=== PATIENT | female | born 1935 | race Caucasian/White ===

== ENCOUNTER 2023-05-07 10:10 | Emergency (ER) | payer MEDICARE, OTHER, SELFPAY ==
[2023-05-07 10:18] VITALS: BP 183/78
[2023-05-07 11:12] VITALS: BP 177/69
[2023-05-07 11:23] VITALS: BMI 39.0
[2023-05-07 12:00] VITALS: BP 190/56
--- NOTE | 2023-05-07 12:02 | ED.GENMED ---
History of Present Illness
General
Chief Complaint: Abdominal Pain
Source: patient and family (son)
Exam Limitations: none
Time Seen by Provider: 05/07/23 11:22
Nursing documentation reviewed up to this point in time: agreed with
Travel History
Have you had any contact with someone who has COVID-19?: No
Do you have any symptoms of coronavirus? Fever > 100 degrees, chills, cough, shortness of breath, sore throat, loss of taste or smell, muscle aches, or headache?: No
History of Present Illness
History of Present Illness:
The patient is an 88-year-old female with a past medical history of CHF and diverticulitis, who comes in with complaints of 2 days of left upper abdominal pain. Patient reports that the pain started gradually and is now worse. Patient reports it
is also radiating under her left breast. However, she denies specific chest pain or shortness of breath. Patient reports he had a normal bowel movement yesterday. Earlier this morning she felt slightly nauseous. She denies fever. She denies
vomiting.
Past History
Past History
ED Past Medical History: HTN, Hypercholesterolemia, IDDM, Hypothyroidism, Other (Diverticulitis, back pain, chest pain, edema, diverticulosis, stress incontinence, arthritis, fractures, cataracts, impaired vision, anxiety, Sciatic pain, UTI, Ulcer
on the toe) and Other (achilles tendon rupture 2015)
ED Past Surgical History: Appendectomy, Cholecystectomy, Orthopedic (Knee arthroscopy), Tonsilectomy and Other (Cyst from breast removed, rectal surgery)
Social History
Tobacco: Non-smoker
Alcohol: None
Drug: None
Personal:
Living: with family (Son)
Employment: Retired
Family History
Family History: Other
Review of Systems
Review of Systems
Allergies reviewed?: Yes
Other source history: family
All Other Systems: ROS reviewed and negative except as documented in HPI and ROS
Constitutional: Reports no symptoms
EENT: Reports no symptoms
Respiratory: Reports no symptoms
Cardiac: Reports no symptoms
ABD/GI: Reports abdominal pain and nausea
: Reports no symptoms
Musculoskeletal: Reports no symptoms
Skin: Reports no symptoms
Neurological: Reports no symptoms
Endocrine: Reports no symptoms
Hematologic/Lymphatic: Reports no symptoms
Psychiatric: Reports no symptoms
Phy Exam
Physical Exam
Physical Exam:
Physical Exam
General: no apparent distress, not acutely ill
Neck: supple. no meningeal signs. normal psoterior pharynx
Heart: s1/s2 regular rate and rhythm, no murmur. equal radial pulses.
Lungs: no acute respiratory distress. clear bilaterally
Abdomen: Normal bowel sounds. Soft. Mildly distended. Left upper quadrant tenderness. No rebound or guarding. No pulsatile mass.
Neuro: alert and oriented. no focal neurological deficits
Skin: no rash
Psychiatric: well kept. interactive and cooperative
Extremities: no edema. no calf tenderness. negative homans. good distal pulses
Course
Orders/Labs/Results
Orders:
Orders
05/07/23 11:52
Basic Metabolic Panel Urgent
Complete Blood Count/With Diff Urgent
Lactic Acid Urgent
Lipase Urgent
Urinalysis Reflex To Culture Urgent
Date Specimen was Collected: 05/07/23
Time Specimen was Collected: 11:50
Urine Microscopic Reflex Cult Urgent
Urine Culture Urgent
KIMBERLY Source: U
Specimen Description:
Date Specimen was Collected: 05/07/23
Time Specimen was Collected: 11:50
05/07/23 12:01
Electrocardiogram (*1) Urgent
Reason for Study: Chest Pain
EKG- Treatment ONCE
05/07/23 12:09
Troponin I Urgent
05/07/23 12:26
0.9% Sodium Chloride 500 ml [Nss] 500 ml IV BOLUS
05/07/23 12:27
CT Abd/pelvis W Iv Cont Urgent
Comment:
Reason For Exam: LUQ pain
05/07/23 14:07
Comprehensive Metabolic Panel Urgent
05/07/23 14:10
Metoprolol Xl [Toprol Xl] 25 mg PO NOW STA
05/07/23 14:22
Cephalexin Monohydrate [Keflex] 500 mg PO NOW STA
Furosemide [Lasix] 20 mg PO NOW STA
Abnormal Lab Results
05/07/23 05/07/23
11:52 14:07
MCH 31.7 H pg
(27.0-31.0)
Potassium 5.2 H mmol/L
(3.5-5.1)
Chloride 110 H mmol/L 111 H mmol/L
(98-107) (98-107)
Carbon Dioxide 21 L mmol/L
(22-30)
BUN 29 H mg/dl 26 H mg/dl
(7-17) (7-17)
Glucose 177 H mg/dl 162 H mg/dl
(70-99) (70-99)
Total Protein 5.9 L g/dl
(6.3-8.2)
Albumin 3.4 L g/dl
(3.5-5.0)
Urine Ketones Trace A
(Negative)
Urine Nitrite (Reflex) Positive A
(Negative)
Leukocyte Esterase Rfl Trace A
(Negative)
Urine RBC 3-6 A /HPF
(0-2)
Urine WBC (Reflex) 11-15 A /HPF
(0-5)
Urine Bacteria (Reflex) Many A
(Negative)
05/07/23 11:52
05/07/23 14:07
Vital Signs
Initial and Last Documented VS:
Initial Vital Signs
Temp Pulse Resp BP Pulse Ox
98.3 F 78 77 183/78 96
05/07/23 10:18 05/07/23 10:18 05/07/23 10:18 05/07/23 10:18 05/07/23 10:18
Last Documented Vital Signs
Temp Pulse Resp BP Pulse Ox
98.2 F 65 18 187/60 94
05/07/23 15:31 05/07/23 14:00 05/07/23 14:00 05/07/23 13:46 05/07/23 14:00
MDM/Problems Addressed
Differential Diagnosis Includes:
Bowel obstruction, acute diverticulitis, gastritis, acute coronary syndrome
MDM/Problems Addressed:
Patient presents with acute left upper abdominal pain rating into her chest
Chronic conditions affecting care: HTN and Previous abdomnial surgery
Acute Exacerbation and/or Progression of Chronic Illness:
Patient would likely be acutely hyperglycemic and hypertensive because she did not take any of her medication today
Acute Exacerbation and/or Progression of Chronic Illness: DM and HTN
*Radiology
Radiology exam reviewed: radiology read reviewed
*Pulse Oximetry
Patient hypoxic: no
*EKG
Interpreted by ED Provider?: Yes
Interpretation: abnormal
Comparison EKG: no changes
Rate: normal
Rhythm: sinus
[place]: left axis deviation
Interval: normal interval
QRS Pattern: normal QRS
Ischemia: non-specific ST changes
*Vendor Management Consultant Interpretation
Rate: normal
Interpretation: normal
Rhythm: sinus
*Critical Care Note
Total Time (30-74mins, 75-104mins- exclusive of procedures): Not Applicable
Data Reviewed
Source: patient and family
Prescriptions/Medications Considered But Not Given:
Patient offered Tylenol for pain but states the pain is not that bad
She reports that if she wants Tylenol she states she will take it at home
Patient Management
Social determinants of health affecting care: Living situation (lives with son) and Strong social support
Escalation/DeEscalation of care consider admission/obs:
The patient remains well and comfortable appearing. She has no fever. Her CAT scan shows no sign of acute diverticulitis or bowel obstruction. There is no sign sign of hydronephrosis.
I am not sure patient's left upper abdominal pain is due to referred pain from her T12 compression fracture or just musculoskeletal in etiology. Patient also may have GERD or gastritis. Patient's urine looks suspicious for UTI, however she looks
extremely well, nontoxic, and lives with her son so has good support.
Her son is requesting prescriptions for her metoprolol and furosemide because he reports they are supposed to have arrived by mail and have not yet come.
ED Attending Note
-
Portions of this chart may have been created with voice recognition software.� Occasional wrong word or��sound alike� substitutions may have occurred due to the inherent limitations of voice recognition software.
Discharge Plan
Departure
Patient Disposition: Home (Routine Discharge)
Date of Disposition: 05/07/23
Time of Disposition: 14:28
Patient with high blood pressure during this ER visit?: Yes
Condition: Good
Covid-19: Not Applicable
Discharge Problem:
Compression fracture of T12 vertebra, Abdominal pain, Acute UTI
Instructions: Vertebral compression fracture, Urinary Tract Infection, Adult ED, Abdominal Pain
Prescriptions:
New
metoprolol succinate 25 mg tablet extended release 24 hr
25 mg PO DAILY 14 Days Qty: 14 0RF
furosemide 20 mg tablet
20 mg PO DAILY 14 Days Qty: 14 0RF
cephalexin 500 mg capsule
500 mg PO BID 7 Days Qty: 14 0RF
No Action
levothyroxine 50 MCG tablet
50 mcg PO DAILY
telmisartan 40 MG tablet
40 mg PO DAILY
cholecalciferol (vitamin D3) [Vitamin D3] 1,000 UNIT capsule
1,000 unit PO DAILY
Novolin 70/30 U-100 Insulin 100 unit/mL (70-30) suspension
0 sliding scale dose SC BID@0800,1700
aspirin 81 mg Tablet,Delayed Release (Dr/Ec)
81 mg PO DAILY Qty: 20 0RF
atorvastatin 40 mg Tablet
40 mg PO QPM Qty: 30 11RF
Brilinta 90 mg Tablet
90 mg PO BID Qty: 60 11RF
simethicone [Gas Relief (simethicone)] 180 mg capsule
180 mg PO BID PRN (Reason: abdominal distention) Qty: 60 0RF
metoprolol succinate 25 mg Tablet Extended Release 24 Hr
25 mg PO DAILY Qty: 30 11RF
furosemide [Lasix] 20 mg tablet
20 mg PO DAILY Qty: 30 11RF
Referrals:
Mayur Vo MD [Family Provider] -
Arthur Knowles MD [Active] - (Call to make an appointment to discuss your spine)
Activity Restrictions/Additional Instructions:
Take 1000 mg of Tylenol every 6 hours for pain. Return with any fever or vomiting.
Interventions
Interventions:
*Risk Screen - Suicide Last Done: 05/07/23 11:25
*General Assessment Last Done: 05/07/23 11:25
*Neglect/Abuse Screening Last Done: 05/07/23 11:25
ED- Fall Risk Assessment Last Done: 05/07/23 12:24
*ED COVID-19 Vaccine History Last Done: 05/07/23 11:25
*Nursing Disposition Last Done: 05/07/23 15:31
JI-Uapfbm-Ftqhsdccek Assessment Last Done: 05/07/23 11:24
Discharge Date and Time
Discharge Date/Time: 05/07/23 15:39
[2023-05-07 12:05] LABS: % Basophils 0.6 % (0-2); % Eosinophils 0.6 % (0-6); % Immature Granulocytes 0.2 % (0-0.5); % Lymphocytes 21.5 % (20.5-51.1); % Monocytes 9.2 % (1.7-9.3); % Neutrophils 67.9 % (42.2-75.2); Absolute Lymphocytes 1.4 10^3/uL (1.2-3.4); Absolute Monocytes 0.6 10^3/uL (0.1-0.6); Absolute Neutrophils 4.3 10^3/uL (1.4-6.5); Hematocrit 42.1 % (37.0-47.0); Hemoglobin 14.5 g/dL (12.0-16.0); Mean Corp Hgb Conc. 34.4 g/dL (33.0-37.0); Mean Corpuscular Hgb 31.7 pg (27.0-31.0); Mean Corpuscular Volume 92.1 fL (81.0-99.0); Mean Platelet Volume 9.5 fL (7.4-10.4); Nucleated Red Blood Cells % 0 %; Platelet Count 249 10^3/uL (130-400); Red Blood Cell Count 4.57 10^6/uL (4.20-5.40); Red Cell Dist. Width 13.3 % (11.5-14.5); White Blood Cell Count 6.3 10^3/uL (4.8-10.8)
[2023-05-07 12:09] LABS: Urine Albumin Negative (Neg - Trace); Urine Bilirubin Negative (Negative); Urine Character Clear (Clear); Urine Color Yellow; Urine Glucose Negative (Negative); Urine Ketone Trace (Negative); Urine Leukocyte Trace (Negative); Urine Nitrite Positive (Negative); Urine Occult Blood Negative (Negative); Urine Specific Gravity 1.015 (<1.030); Urine Urobilinogen Negative (Neg - 1+)
[2023-05-07 12:21] LABS: Blood Urea Nitrogen 29 mg/dl (7-17); Calcium 9.1 mg/dl (8.4-10.2); Carbon Dioxide 23 mmol/L (22-30); Chloride 110 mmol/L (98-107); Estimated Creatinine Clearance 45 ml/min; Glucose 177 mg/dl (70-99); Lipase 118 U/L (23-300); Sodium 136 mmol/L (135-145); eGFR 54.53
[2023-05-07] MEDS: NSS 500 IV (12:37)
[2023-05-07 12:38] LABS: Lactic Acid 1.1 mmol/L (0.7-2.0)
[2023-05-07 12:47] LABS: Troponin I 0.013 ng/ml
[2023-05-07 13:00] VITALS: BP 197/56
[2023-05-07 13:22] LABS: Urine Bacteria Many (Negative)
[2023-05-07 13:46] VITALS: BP 187/60
[2023-05-07 14:39] LABS: ALT (SGPT) 16 U/L (0-35); AST (SGOT) 23 U/L (14-36); Albumin 3.4 g/dl (3.5-5.0); Alkaline Phosphatase 96 U/L (38-126); Blood Urea Nitrogen 26 mg/dl (7-17); Calcium 8.7 mg/dl (8.4-10.2); Carbon Dioxide 21 mmol/L (22-30); Chloride 111 mmol/L (98-107); Estimated Creatinine Clearance 45 ml/min; Glucose 162 mg/dl (70-99); Potassium 5.2 mmol/L (3.5-5.1); Sodium 135 mmol/L (135-145); Total Bilirubin 0.8 mg/dl (0.2-1.3); Total Protein 5.9 g/dl (6.3-8.2); eGFR 54.53
[2023-05-07] MEDS: LASIX 20 MG PO (14:41)
[2023-05-07] MEDS: TOPROL XL 25 MG PO (14:41)
[2023-05-07] MEDS: KEFLEX 500 MG PO (14:41)
== END 2023-05-07 15:39 | disposition home or self-care (01) ==
LOC: EMR 10:10
PROVIDERS: EMERGENCY PHYSICIAN Emergency Medicine; FAMILY PHYSICIAN Family Medicine
DX: M48.54XA Collapsed vertebra, not elsewhere classified, thoracic region, initial encounter for fracture (principal); R10.12 Left upper quadrant pain; R11.0 Nausea; N39.0 Urinary tract infection, site not specified; I11.0 Hypertensive heart disease with heart failure; I50.9 Heart failure, unspecified; K57.92 Diverticulitis of intestine, part unspecified, without perforation or abscess without bleeding; E78.00 Pure hypercholesterolemia, unspecified; E11.36 Type 2 diabetes mellitus with diabetic cataract; E03.9 Hypothyroidism, unspecified; F41.9 Anxiety disorder, unspecified; M19.90 Unspecified osteoarthritis, unspecified site; Z79.4 Long term (current) use of insulin; Z87.440 Personal history of urinary (tract) infections; Z90.49 Acquired absence of other specified parts of digestive tract; Z88.1 Allergy status to other antibiotic agents; Z88.0 Allergy status to penicillin; Z88.2 Allergy status to sulfonamides; Z88.8 Allergy status to other drugs, medicaments and biological substances; Z79.82 Long term (current) use of aspirin
CPT/HCPCS: 99285; 96360; 74177; 80048; 80053; 81003; 81015; 83605; 83690; 84484; 85025; 87077; 87086; 87186; 93005; Q9967

== ENCOUNTER 2023-08-12 16:51 | Inpatient (IN) | payer MEDICARE, OTHER, SELFPAY ==
[2023-08-12] VITALS (8 sets, daily range): BP systolic 101–172; BP diastolic 49–146; PULSE 68–81; BMI 38.6
[2023-08-12 13:43] LABS: % Basophils 0.3 % (0-2); % Eosinophils 0.3 % (0-6); % Immature Granulocytes 0.3 % (0-0.5); % Lymphocytes 23.3 % (20.5-51.1); % Monocytes 4.7 % (1.7-9.3); % Neutrophils 71.1 % (42.2-75.2); Absolute Lymphocytes 2.4 10^3/uL (1.2-3.4); Absolute Monocytes 0.5 10^3/uL (0.1-0.6); Absolute Neutrophils 7.3 10^3/uL (1.4-6.5); Hematocrit 33.8 % (37.0-47.0); Hemoglobin 11.3 g/dL (12.0-16.0); Mean Corp Hgb Conc. 33.4 g/dL (33.0-37.0); Mean Corpuscular Hgb 31.6 pg (27.0-31.0); Mean Corpuscular Volume 94.4 fL (81.0-99.0); Mean Platelet Volume 9.4 fL (7.4-10.4); Nucleated Red Blood Cells % 0 %; Platelet Count 278 10^3/uL (130-400); Red Blood Cell Count 3.58 10^6/uL (4.20-5.40); Red Cell Dist. Width 13.6 % (11.5-14.5); White Blood Cell Count 10.2 10^3/uL (4.8-10.8)
[2023-08-12 13:52] LABS: INR 1.11; PT 14.1 Sec (11.4-14.6)
[2023-08-12 13:53] LABS: APTT 31.2 Sec (23.4-35.0)
[2023-08-12 14:01] LABS: ALT (SGPT) 18 U/L (0-35); AST (SGOT) 27 U/L (14-36); Albumin 3.9 g/dl (3.5-5.0); Alkaline Phosphatase 93 U/L (38-126); Blood Urea Nitrogen 50 mg/dl (7-17); Calcium 9.3 mg/dl (8.4-10.2); Carbon Dioxide 23 mmol/L (22-30); Chloride 108 mmol/L (98-107); Glucose 134 mg/dl (70-99); Potassium 4.9 mmol/L (3.5-5.1); Sodium 135 mmol/L (135-145); Total Bilirubin 0.5 mg/dl (0.2-1.3); Total Protein 6.3 g/dl (6.3-8.2); eGFR 48.63
[2023-08-12] MEDS: ROXICODONE 2.5 MG PO (14:13)
[2023-08-12] MEDS: PROTONIX IV 80 MG IV (14:14)
--- NOTE | 2023-08-12 16:05 | ED.GENMED ---
History of Present Illness
General
Chief Complaint: Back Pain
Source: patient and family (Son)
Exam Limitations: none
Time Seen by Provider: 08/12/23 12:45
Nursing documentation reviewed up to this point in time: agreed with
Travel History
Have you had any contact with someone who has COVID-19?: No
Do you have any symptoms of coronavirus? Fever > 100 degrees, chills, cough, shortness of breath, sore throat, loss of taste or smell, muscle aches, or headache?: No
History of Present Illness
History of Present Illness:
88-year-old female with a past medical history of hypertension, diabetes, CAD status post stent, chronic thoracic compression fracture who presents to the emergency department for evaluation of black stools as well as left flank/low back pain.
Patient reports that she has been dealing with constipation recently. She says she took a stool softener yesterday. Last night she says she had a large volume solid bowel movement that was black. Overnight she says she had 3-4 additional episodes
this time of liquid black stool. She says that while she was straining on the toilet she noted that she was having some pain in the left flank rating into the left buttock as well. With continued pain and multiple black stools decided to come for
evaluation in the emergency room today. She does feel fatigued and somewhat weak. Denies any shortness of breath or dizziness. She denies any abdominal pain. She denies any nausea or vomiting. She does take aspirin and Plavix for history of CAD.
Past History
Past History
ED Past Medical History: HTN, Hypercholesterolemia, IDDM, Hypothyroidism, Other (Diverticulitis, back pain, chest pain, edema, diverticulosis, stress incontinence, arthritis, fractures, cataracts, impaired vision, anxiety, Sciatic pain, UTI, Ulcer
on the toe) and Other (achilles tendon rupture 2015)
ED Past Surgical History: Appendectomy, Cholecystectomy, Orthopedic (Knee arthroscopy), Tonsilectomy and Other (Cyst from breast removed, rectal surgery)
Social History
Tobacco: Non-smoker
Alcohol: None
Drug: None
Personal:
Living: with family (Son)
Employment: Retired
Family History
Family History: Other
Review of Systems
Review of Systems
All Other Systems: ROS reviewed and negative except as documented in HPI and ROS
Constitutional: Reports fatigue; Denies fever or chills
EENT: Denies sore throat or runny nose
Respiratory: Denies cough or trouble breathing
Cardiac: Denies chest pain or palpitations
ABD/GI: Reports diarrhea and black stools; Denies abdominal pain, nausea or vomiting
: Reports flank pain; Denies dysuria or frequency
Musculoskeletal: Reports back pain; Denies neck pain
Neurological: Denies headache, weakness or numbness
Phy Exam
Physical Exam
Physical Exam:
General: Awake, alert, oriented x3; no acute distress
Head: Normocephalic, atraumatic
Eyes: Conjunctiva normal, sclera anicteric
Throat: Airway intact, handling secretions
Neck: Trachea midline, supple without meningismus
Lungs: Clear to auscultation bilaterally, no wheezing, rales, rhonchi
Heart: Regular rate and rhythm, no murmurs, gallops, or rubs
Abd: Soft, non distended, nontender
Rectal: Good rectal tone, black stool heme positive
Back: No tenderness in the thoracic or lumbar spine; she does have point tenderness paraspinal region at the level of L3 on the left side
Neuro: Cranial nerves grossly intact, speech fluid
Skin: Slightly pale, no rash
Extremities: Warm and well-perfused
Scores
Heart Failure Risk
Heart Failure Risk Score: Not Applicable
Heart Score for Chest Pain Patients
STEMI patient?: Not applicable
Withdrawal Assessment of Alcohol
Withdrawal Assessment Completed?: Not applicable
Course
Orders/Labs/Results
Orders:
Orders
08/12/23 12:51
CT Abd/pelvis W Iv Cont Urgent
Comment:
Reason For Exam: rectal pain
08/12/23 13:14
Oxycodone [Roxicodone] 2.5 mg PO NOW STA
Pantoprazole [Protonix IV] 80 mg IV NOW STA
08/12/23 13:32
Type+Screen Urgent
Complete Blood Count/With Diff Urgent
Comprehensive Metabolic Panel Urgent
PTT Urgent
Prothrombin Time Urgent
Abnormal Lab Results
08/12/23
13:32
RBC 3.58 L 10^6/uL
(4.20-5.40)
Hgb 11.3 L g/dL
(12.0-16.0)
Hct 33.8 L %
(37.0-47.0)
MCH 31.6 H pg
(27.0-31.0)
Absolute Neuts (auto) 7.3 H 10^3/uL
(1.4-6.5)
Chloride 108 H mmol/L
(98-107)
BUN 50 H mg/dl
(7-17)
Creatinine 1.1 H mg/dL
(0.6-1.0)
Glucose 134 H mg/dl
(70-99)
08/12/23 13:32
08/12/23 13:32
Vital Signs
Initial and Last Documented VS:
Initial Vital Signs
Temp Pulse Resp BP Pulse Ox
36.6 C 73 16 134/71 93
08/12/23 12:09 08/12/23 12:09 08/12/23 12:08/12/23 12:08/12/23 12:09
Last Documented Vital Signs
Temp Pulse Resp BP Pulse Ox
36.6 C 73 16 134/71 93
08/12/23 12:09 08/12/23 12:09 08/12/23 12:09 08/12/23 12:09 08/12/23 12:09
MDM/Problems Addressed
Differential Diagnosis Includes:
Black stools: Upper GI bleeding from ulcer, gastritis, AVM, etc
Back/flank pain: Muscular strain, disc herniation, compression fracture, retroperitoneal bleed, intra-abdominal infection less likely with no abdominal pain or tenderness
MDM/Problems Addressed:
88-year-old female with history as above notable for CAD on aspirin and Plavix presents with black stools times multiple episodes over the past 24 hours. Also having some acute on chronic pain in the left low back radiating to the buttock. Vital
signs are normal here. Exam as above. She is heme positive with black stool on rectal exam today. Plan to place a large bore IV send labs including a CBC and a CMP, coags, type and screen. Will send for a CT of the abdomen pelvis to better
evaluate left flank/back pain. Will treat with IV Protonix. Monitor closely reassess after the above�anticipate admission.
Labs reviewed: CBC shows hemoglobin of 11.3 down from 14 at baseline. CMP shows creatinine of 1.1 with elevated BUN in keeping with upper GI bleed. Patient is above transfusion threshold but given multiple episodes and to antiplatelet therapy will
need close monitoring for bleeding and serial hemoglobins. CT of the abdomen pelvis shows questionable proctitis but no other acute abnormalities. Will plan for admission for continued management�Case discussed with hospitalist for admission.
Chronic conditions affecting care:
CAD on dual antiplatelet therapy which complicates her GI bleeding
*Radiology
Radiology exam reviewed: radiology read reviewed
*Pulse Oximetry
Patient hypoxic: no
*Critical Care Note
Total Time (30-74mins, 75-104mins- exclusive of procedures): Not Applicable
Data Reviewed
Review of Other/Old Records Reveals: Labs and Records
Source: patient and family
Patient Management
Discussion with other providers: Hospitalist (Discussed with hospitalist)
Escalation/DeEscalation of care consider admission/obs:
Admission indicated
ED Attending Note
-
Portions of this chart may have been created with voice recognition software.� Occasional wrong word or��sound alike� substitutions may have occurred due to the inherent limitations of voice recognition software.
Discharge Plan
Departure
Patient Disposition: Admit
Date of Disposition: 08/12/23
Time of Disposition: 16:11
Admit to doctor: Faustino
Presentation/result/management discussed w/ accepting MD/DO: Hospitalist
Discharge Problem:
Acute upper GI bleed, Left low back pain, Acute blood loss anemia
Prescriptions:
No Action
levothyroxine 50 MCG tablet
50 mcg PO DAILY
telmisartan 40 MG tablet
40 mg PO DAILY
cholecalciferol (vitamin D3) [Vitamin D3] 1,000 UNIT capsule
1,000 unit PO DAILY
Novolin 70/30 U-100 Insulin 100 unit/mL (70-30) suspension
0 sliding scale dose SC BID@0800,1700
aspirin 81 mg Tablet,Delayed Release (Dr/Ec)
81 mg PO DAILY Qty: 20 0RF
atorvastatin 40 mg Tablet
40 mg PO QPM Qty: 30 11RF
Brilinta 90 mg Tablet
90 mg PO BID Qty: 60 11RF
simethicone [Gas Relief (simethicone)] 180 mg capsule
180 mg PO BID PRN (Reason: abdominal distention) Qty: 60 0RF
metoprolol succinate 25 mg Tablet Extended Release 24 Hr
25 mg PO DAILY Qty: 30 11RF
furosemide [Lasix] 20 mg tablet
20 mg PO DAILY Qty: 30 11RF
metoprolol succinate 25 mg tablet extended release 24 hr
25 mg PO DAILY 14 Days Qty: 14 0RF
furosemide 20 mg tablet
20 mg PO DAILY 14 Days Qty: 14 0RF
cephalexin 500 mg capsule
500 mg PO BID 7 Days Qty: 14 0RF
Referrals:
Mayur Vo MD [Family Provider] -
Interventions
Interventions:
*Risk Screen - Suicide Last Done: 08/12/23 12:09
*General Assessment Last Done: 08/12/23 12:09
*Neglect/Abuse Screening Last Done: 08/12/23 12:09
ED- Fall Risk Assessment Last Done: 08/12/23 14:23
ED-Musculoskeletal Assessment Last Done: 08/12/23 14:23
Discharge Date and Time
Print Language: PUERTO RICAN
--- NOTE | 2023-08-12 16:12 | HPS.HSE ---
Family Physician
-
Family Physician: Mayur Vo
Chief Complaint
-
Black stools
History of Present Illness
88-year-old female with a past medical history of hypertension, diabetes, CAD status post stent, chronic thoracic compression fracture who presents to the emergency department for evaluation of black stools since yesterday. Patient also complaining
of low back pain. Patient reports that she has been dealing with constipation recently. She says she took a stool softener yesterday.she says she had a large volume solid bowel movement that was black. she had 3-4 additional episodes this time of
liquid black stool. Patient was straining and since then she has been noticing low mid back pain. with continued pain and multiple black stools decided to come for evaluation in the emergency room today. Patient denied any abdominal pain. Patient
denied nausea, vomiting. Patient denied any headache, dizziness, syncopal episode. Patient denied runny nose, congestion, cough patient denied chest pain or short of breath. Patient denied dysuria hematuria.
CT with proctitis. Hemoglobin at 11.1. Admitting for further management
Medical History
Past Medical History
Past Medical History: Reports Other
Additional Past Medical History:
Vitamin D deficiency
Hypothyroidism
Hyperlipidemia
[place]
Type 2 diabetes
Hypertension
Heart failure
Past Surgical History: Reports Other
Additional Past Surgical History:
Appendectomy
Cholecystectomy
Rectal cyst
Bilateral cataract surgery
Cardiac stents
Social History
Tobacco: Non-smoker
Alcohol: None
Drug: None
Family History
Family History: Not pertinent
Allergies / Home Medications
Allergies reflects when Allergies were last updated in [facility].
Home Medications with original date entered in [facility]
Allergy/Medication List:
Allergies
Allergy/AdvReac Type Severity Reaction Status Date / Time
amoxicillin Allergy upset Verified 08/12/23 12:09
stomach
ciprofloxacin HCl Allergy upset Verified 08/12/23 12:09
[From Cipro] stomach
levofloxacin [From Levaquin] Allergy ITCHINESS Verified 08/12/23 12:09
Penicillins Allergy upset Verified 08/12/23 12:09
stomach
Sulfa (Sulfonamide Allergy Unknown Verified 08/12/23 12:09
Antibiotics)
tegaserod hydrogen maleate Allergy DRUG OFF Verified 08/12/23 12:09
[From Zelnorm] [facility]
Home Medications
levothyroxine 50 mcg tablet 50 mcg PO DAILY Thyroid 11/26/14
telmisartan 40 mg tablet 40 mg PO DAILY Blood pressure 11/09/18
cholecalciferol (vitamin D3) 25 mcg (1,000 unit) capsule (Vitamin D3) 1,000 unit PO DAILY Supplement 11/11/18
insulin human U-100 NPH-regulr 70-30 mix 100 unit/mL subcutaneous susp (Novolin 70/30 U-100 Insulin) 0 sliding scale dose SC BID@0800,1700 Diabetes 08/19/22
aspirin 81 mg tablet,delayed release 81 mg PO DAILY heart disease/condition #20 tabs 08/23/22
atorvastatin 40 mg tablet 40 mg PO QPM High cholesterol #30 tabs 08/23/22
metoprolol succinate 25 mg tablet,extended release 24 hr 25 mg PO DAILY Heart disease/condition #30 tabs 08/23/22
furosemide 20 mg tablet 20 mg PO DAILY 14 days #14 tabs 05/07/23
Review of Systems
-
Constitutional: Reports No Symptoms
EENT: Reports No Symptoms
Respiratory: Reports No Symptoms
Cardiac: Reports No Symptoms
Abdomen/GI: Reports Bloody Stools
: Reports No Symptoms
Musculoskeletal: Reports No Symptoms and Other (back pain)
Skin: Reports No Symptoms
Neurological: Reports No Symptoms
Endocrine: Reports No Symptoms
Hematologic/Lymphatic: Reports No Symptoms
Psych: Reports No Symptoms
Physical Exam
Vital Signs
Vital Signs
Temp Pulse Resp BP Pulse Ox
98 F 73 16 134/71 93
08/12/23 12:09 08/12/23 12:09 08/12/23 12:09 08/12/23 12:09 08/12/23 12:09
Physical Exam
General: Well Developed, Well Nourished and No Apparent Distress
HEENT: NormoCephalic, Moist mucous membranes and Atraumatic
Respiratory: Clear
Cardiac: S1/S2 and Regular Rhythm; No Murmur or Rub
GI: Soft, Non Tender, Non Distended and Normal Bowel Sounds; No Organomegaly
Rectal: Deferred by Provider
Musculoskeletal: No Clubbing, No Cyanosis and No Edema
Skin: No Rash
Neuro: AO x 3 and Nonfocal/grossly intact
Laboratory Results
-
08/12/23 13:32
08/12/23 13:32
Laboratory Results
PT 14.1 Sec (11.4-14.6) 08/12/23 13:32
INR 1.11 08/12/23 13:32
APTT 31.2 Sec (23.4-35.0) 08/12/23 13:32
Total Bilirubin 0.5 mg/dl (0.2-1.3) 08/12/23 13:32
AST 27 U/L (14-36) 08/12/23 13:32
ALT 18 U/L (0-35) 08/12/23 13:32
Alkaline Phosphatase 93 U/L (38-126) 08/12/23 13:32
Data Reviewed
-
CT Scan: Report Reviewed by me
Lab Data: Labs Reviewed by me
Impression/Plan
-
# Acute blood loss anemia likely from upper GI bleed/left flank pain
-Hemoglobin 11
-IV PPI twice a day
-Clear liquid diet
-Trend hemoglobin
-Transfuse if hemoglobin less than 7
-GI consulted
CT abdomen pelvis with Mild to moderate rectal wall thickening suggesting some form of proctitis. No signs of abscess formation identified. No other signs of an acute intra-abdominal process.
2. Atrophic changes of the right kidney, probably related to arterial stenosis.
3. Severe aortic atherosclerotic changes with probable focal aortic narrowing as above.
4. Moderate fat-containing umbilical hernia.
5. Moderate compression deformity T12 vertebral body, chronic appearance.
#acute kidney injury likely from diuretic
-Creatinine 1.1
-ctm
-hold Lasix and ARB
#hx tof heart failure, combined type
-Echo 08/19 Ischemic cardiomyopathy with moderately reduced LV systolic function and mild�concentric left ventricular hypertrophy,�EF 35%, Stage III diastolic dysfunction with increased filling pressures
-not in acute exacerbation
-daily weight
-strict I&O
-ctm
-furosemide held due to SEBASTIEN
-metoprolol
# NSTEMI
Status post cardiac catheterization on 08/20 with stent to LAD
-continue with asa
-hold Plavix
#hld
-statin continued
# Essential Hypertension
-metoprolol continued
# Insulin Dependent Diabetes Mellitus
Monitor sugars and continue coverage insulin
-novolin 10units with meals
# Hypothyroidism
-Continue Levothyroxine
# Morbid Obesity due Excess Calories
Consult Dietary
Encourage weight loss
Affects all aspects of care
DVT prophylaxis�scd
DNR
--- NOTE | 2023-08-12 17:23 | W.PN.UPDATE ---
Update Note
Progress Note Update
HPI: 88-year-old female with past medical history of hypertension, diabetes, CAD status post stent, chronic thoracic compression fracture who presented with black stool for 1 day.
She also has chronic lower back pain ongoing for several months.
CT abdomen pelvis with Mild to moderate rectal wall thickening suggesting some form of proctitis. No signs of abscess formation identified. No other signs of an acute intra-abdominal process.
2. Atrophic changes of the right kidney, probably related to arterial stenosis.
3. Severe aortic atherosclerotic changes with probable focal aortic narrowing as above.
4. Moderate fat-containing umbilical hernia.
5. Moderate compression deformity T12 vertebral b
A/P:
# Acute blood loss anemia likely from upper GI bleed in setting of DAPT with ASA/Plavix
Hemoglobin 11 from baseline 14
Cont to trend Hgb
Start IV PPI twice a day
Clear liquid diet for now until further directed by GI
GI consult
# Chronic diastolic heart failure
EF from 11/2022 with EF 55%, Grade 1 diastolic dysfunction
OK to hold lasix for now
cont OIL PUMPER metoprolol with holding parameter
# h/o CAD s/p PCI LAD 08/31
continue with asa, hold plavix
# HLD
Cont statin
# Essential Hypertension
Cont metoprolol
# Insulin Dependent Diabetes Mellitus
Monitor sugars and continue coverage insulin
Cont decreased Insulin 70/30 at 10units BID
# Hypothyroidism
Continue Levothyroxine
# Morbid Obesity due Excess Calories
DVT prophylaxis�scd
DNR
[2023-08-12] MEDS: LIPITOR 10 MG PO (18:59)
[2023-08-12 19:06] LABS: Glucose - Point of Care 217 mg/dl (70-99)
--- NOTE | 2023-08-12 19:30 | PTCARENOTE ---
Pt. admitted from E.D., AAO x 3, vs stable, NSR, first degree HB, BBC noted on monitor, call avila within reach.
[2023-08-12] MEDS: PROTONIX IV 40 MG IV (21:21)
[2023-08-12] MEDS: FLUSH (NSS) 2 FLUSH IV (21:21)
[2023-08-12] MEDS: NSS (PRESERVATIVE FREE) 10 ML IV (21:21)
[2023-08-12 23:50] LABS: Glucose - Point of Care 155 mg/dl (70-99)
[2023-08-13] VITALS (7 sets, daily range): BP systolic 144–174; BP diastolic 42–78; PULSE 71–89; BMI 37.5
[2023-08-13] MEDS: SYNTHROID 50 MCG PO (05:01)
[2023-08-13 07:05] LABS: Glucose - Point of Care 184 mg/dl (70-99)
[2023-08-13 07:40] LABS: Hematocrit 29.8 % (37.0-47.0); Hemoglobin 9.8 g/dL (12.0-16.0); Mean Corp Hgb Conc. 32.9 g/dL (33.0-37.0); Mean Corpuscular Hgb 31.7 pg (27.0-31.0); Mean Corpuscular Volume 96.4 fL (81.0-99.0); Mean Platelet Volume 9.4 fL (7.4-10.4); Platelet Count 239 10^3/uL (130-400); Red Blood Cell Count 3.09 10^6/uL (4.20-5.40); Red Cell Dist. Width 13.4 % (11.5-14.5)
[2023-08-13 08:25] LABS: Blood Urea Nitrogen 35 mg/dl (7-17); Calcium 8.9 mg/dl (8.4-10.2); Carbon Dioxide 24 mmol/L (22-30); Chloride 109 mmol/L (98-107); Estimated Creatinine Clearance 40 ml/min; Glucose 158 mg/dl (70-99); Potassium 4.9 mmol/L (3.5-5.1); Sodium 134 mmol/L (135-145); eGFR 48.63
[2023-08-13] MEDS: NSS (PRESERVATIVE FREE) 10 ML IV ×2 (08:27→20:37)
[2023-08-13] MEDS: PROTONIX IV 40 MG IV ×2 (08:27→20:36)
[2023-08-13] MEDS: TOPROL XL 25 MG PO (08:27)
[2023-08-13] MEDS: ASPIR LOW (ENTERIC COATED) 81 MG PO (08:27)
[2023-08-13 09:09] LABS: Glycohemoglobin (HgbA1c) 7.1 % (4.0-5.6)
[2023-08-13] MEDS: NOVOLOG MIX 70/30 FLEXPEN 10 UNITS SC ×2 (09:47→17:24)
[2023-08-13] MEDS: NOVOLOG FLEXPEN-LOW RESISTANCE 1 UNITS SC (09:48)
--- NOTE | 2023-08-13 10:04 | CON.GI ---
Addendum entered and electronically signed by Ayse Barrientos MD 08/13/23 14:48:
I saw and examined the patient.
The JOB SETTER or PA's note was reviewed and I agree with the note.
Comment: 88-year-old female past medical history of diabetes, CAD status post stent August 2022 presenting with melena. Initially was constipated and had multiple black bowel movements. Last bowel movement was yesterday. Denies NSAID use. She is on
aspirin and Plavix. She has some chronic nausea that she attributes to the Plavix. She has no abdominal pain but has some back pain. She is found to have proctitis on CAT scan in the emergency room. Her hemoglobin was initially 11.3 which
dropped to 9.8. BUN on admission was 50 which dropped to 35. She had an upper endoscopy many years ago I do not see anything in the [facility] system.
In regards to her Plavix, her last dose was Tuesday. Reviewing her cardiology note from June 2023, they recommended uninterrupted dual antiplatelet therapy for at least 1 year with plans to discuss discontinuation of Plavix in September (appt 09/[address] at
[address] Akhtar). Patient feels strongly she should stop the Plavix. I explained to her I would not recommend stopping Plavix until she addresses this with her dining manager. However, we will temporarily hold her Plavix in the acute setting
with the bleeding. We can and should continue her baby aspirin.
Given the melena, elevated BUN I suspect this is an upper GI source. Differential diagnosis includes but not limited to peptic ulcer disease, AVM, less likely malignancy. This was reviewed with the patient. Discussed upper endoscopy. Risk,
alternatives, benefits including but not limited to bleeding, infection, perforation, increased risk given her age and comorbidities were discussed. Discussed the benefit of finding etiology of the bleeding and potentially stopping it. Although
she took her last dose of Plavix on Tuesday, we could do the procedure on Tuesday although our interventions may be somewhat limited. Otherwise, procedure would be on hold until Tuesday. Patient feels a little overwhelmed discussing endoscopy so
we will readdress with her again tomorrow. At this time, there is no emergent need to do it over the weekend. For now, continue clear liquid diet, trend hemoglobin, monitor bowel movements, continue IV PPI twice daily.
Original Note:
Consultation
-
Date/Time Consultation Requested: 08/12/23 1937
Date/Time Consultation Performed: 08/13/23 1669
Requesting Provider: SARA Nathan
Performing Provider: Dr. Barrientos/SARA Conner
Reason for Consultation: GI bleed, melena
Medical History
Chief Complaint / HPI
Chief Complaint: melena
History of Present Illness:
88-year-old female with past medical history hypertension, diabetes, CAD status postcardiac stent, gastroesophageal reflux, chronic thoracic compression fractures who presents to the emergency room with melena. The patient states that yesterday she
was having a bowel movement. She states that she is usually constipated and uses a stool softener to have a bowel movement. She usually has soft pebble-like stools every couple days. She took more stool softeners. She states that she then started
having black bowel movements. This brought her to the emergency room for further evaluation. There she was found to have hemoglobin of 11.3 with OB positive stool. CT showing proctitis. We are asked to evaluate for the same. The patient does
also endorse low back pain with radiation down into the legs. She has had some mild nausea recently. In the past she has been on a PPI for gastroesophageal reflux disease however she states she has not taken this in some time. She is on aspirin
and Plavix. She does not take any other NSAIDs. She denies any fevers, chills, vomiting, hematochezia, dysphagia or dyne aphasia. She denies any early satiety or unintentional weight loss. Her hemoglobin did decrease from 11.3 down to 9.8 this
morning. She also did present with a BUN of 50 with creatinine 1.1 and is now down to 35 with creatinine 1.1. Rectal exam performed by myself was soft melena foul-smelling briskly heme positive. From 11.3 patient has had no bowel movements since
arrival.
Past Medical History
Past Medical History: CAD (cardiac stents), CHF, HTN, IDDM and Other (chronic thoracic compression fractures, constipation, GERD)
Past Surgical History: Cholecystectomy, Tonsilectomy and Other (b/l cataracts, right brast cyst removal, right knee arthroscopy)
Social History
Tobacco: Non-Smoker
Alcohol: None
Living: With Family
Family History
Family History: Other (No fam hx of GI malignancy or IBD )
Allergies / Home Medications
Allergy/AdvReac Type Severity Reaction Status Date / Time
amoxicillin Allergy upset Verified 08/12/23 12:09
stomach
ciprofloxacin HCl Allergy upset Verified 08/12/23 12:09
[From Cipro] stomach
levofloxacin [From Levaquin] Allergy ITCHINESS Verified 08/12/23 12:09
Penicillins Allergy upset Verified 08/12/23 12:09
stomach
Sulfa (Sulfonamide Allergy Unknown Verified 08/12/23 12:09
Antibiotics)
tegaserod hydrogen maleate Allergy DRUG OFF Verified 08/12/23 12:09
[From Zelnorm] [facility]
�Medication �Instructions �Recorded
levothyroxine 50 mcg tablet 50 mcg PO DAILY Thyroid 11/26/14
telmisartan 40 mg tablet 40 mg PO DAILY Blood pressure 11/09/18
cholecalciferol (vitamin D3) 25 1,000 unit PO DAILY Supplement 11/11/18
mcg (1,000 unit) capsule (Vitamin
D3)
insulin human U-100 NPH-regulr 35 unit SC BID@0800,1700 Diabetes 08/19/22
70-30 mix 100 unit/mL subcutaneous
susp (Novolin 70/30 U-100 Insulin)
aspirin 81 mg tablet,delayed 81 mg PO DAILY heart 08/23/22
release disease/condition #20 tabs
metoprolol succinate 25 mg 25 mg PO DAILY Heart 08/23/22
tablet,extended release 24 hr disease/condition #30 tabs
atorvastatin 10 mg tablet (Lipitor) 10 mg PO Q48H@1700 08/12/23
clopidogrel 75 mg tablet (Plavix) 75 mg PO DAILY 08/12/23
furosemide 20 mg tablet 20 mg PO Q48H 08/12/23
Review of Systems
-
All other systems: A 12 pt ROS was Negative except as stated above in HPI
Vital Signs
Temp Pulse Resp BP Pulse Ox
97.8 F 68 16 146/57 96
08/13/23 07:00 08/13/23 07:00 08/13/23 07:00 08/13/23 07:00 08/13/23 07:00
Physical Exam
Exam
General: No Apparent Distress
HEENT: Anicteric
Respiratory: Clear
Cardiac: Regular Rhythm
GI: Soft, Non Tender, Non Distended and Normal Bowel Sounds
Rectal: Black and Hem Positive
Skin: Warm and Dry
Neuro: AO x 3
Psych: Calm
Results
WBC 7.0 10^3/uL (4.8-10.8) 08/13/23 07:21
Hgb 9.8 g/dL (12.0-16.0) L 08/13/23 07:21
Hct 29.8 % (37.0-47.0) L 08/13/23 07:21
MCV 96.4 fL (81.0-99.0) 08/13/23 07:21
Plt Count 239 10^3/uL (130-400) 08/13/23 07:21
Absolute Neuts (auto) 7.3 10^3/uL (1.4-6.5) H 08/12/23 13:32
PT 14.1 Sec (11.4-14.6) 08/12/23 13:32
INR 1.11 08/12/23 13:32
APTT 31.2 Sec (23.4-35.0) 08/12/23 13:32
Sodium 134 mmol/L (135-145) L 08/13/23 07:21
Potassium 4.9 mmol/L (3.5-5.1) 08/13/23 07:21
Chloride 109 mmol/L (98-107) H 08/13/23 07:21
Carbon Dioxide 24 mmol/L (22-30) 08/13/23 07:21
BUN 35 mg/dl (7-17) H 08/13/23 07:21
Creatinine 1.1 mg/dL (0.6-1.0) H 08/13/23 07:21
Calcium 8.9 mg/dl (8.4-10.2) 08/13/23 07:21
Total Bilirubin 0.5 mg/dl (0.2-1.3) 08/12/23 13:32
AST 27 U/L (14-36) 08/12/23 13:32
ALT 18 U/L (0-35) 08/12/23 13:32
Alkaline Phosphatase 93 U/L (38-126) 08/12/23 13:32
Diagnostic Image Results:
CT Abd/Pelvis with IV contrast:
IMPRESSION:
1. Mild to moderate rectal wall thickening suggesting some form of proctitis. No signs of abscess formation identified. No other signs of an acute intra-abdominal process.
2. Atrophic changes of the right kidney, probably related to arterial stenosis.
3. Severe aortic atherosclerotic changes with probable focal aortic narrowing as above.
4. Moderate fat-containing umbilical hernia.
5. Moderate compression deformity T12 vertebral body, chronic appearance.
Electronically signed by Hammad Nunez DO 08/12/2023 3:43 PM
Prior GI Procedures:
EGD: 'years ago' does not recall who or dx
Colonoscopy: 'year ago' 'okay'
Assessment / Plan
-
88-year-old female with past medical history hypertension, diabetes, CAD status postcardiac stent, gastroesophageal reflux, chronic thoracic compression fractures who presents to the emergency room with melena. The patient states that yesterday she
was having a bowel movement. She states that she is usually constipated and uses a stool softener to have a bowel movement. She usually has soft pebble-like stools every couple days. She took more stool softeners. She states that she then started
having black bowel movements. This brought her to the emergency room for further evaluation. There she was found to have hemoglobin of 11.3 with OB positive stool. CT showing proctitis. Patient with melena on rectal performed by myself with drop
in Hgb down to 9.8 and BUN of 50 on arrival. No further BMs since here. On PPI now. Was not at home. Plavix being held.
Impression:
GI bleed (melena)
Acute blood loss anemia
-Patient currently stable without any further episodes of bleeding, VSS, Plavix on hold, BUN trending down.
Chronic constipation
Plan:
-Continue on Pantoprazole 40 mg IV BID
-Clear liquid diet, no red
-Trend labs
-Allow for plavix washout, last dose on .
-Plan on EGD-timing to be discussed.
-Stool seen on CT imaging suggesting proctitis, soft stool on rectal exam (patient took more colace) Not uncomfortable now, no impaction.
-
-
Thank you for consultation and allowing me to participate in the patient's care. Please call the integration software developer GI physician during the after hours with any questions or concerns.
--- NOTE | 2023-08-13 10:57 | W.PN.HOSP.TC ---
Today's Communication/Plan
-
see A/P
Assessment / Plan
Assessment / Plan
HPI: 88-year-old female with past medical history of hypertension, diabetes, CAD status post stent, chronic thoracic compression fracture who presented with black stool for 1 day.
She also has chronic lower back pain ongoing for several months.
CT abdomen pelvis with Mild to moderate rectal wall thickening suggesting some form of proctitis. No signs of abscess formation identified. No other signs of an acute intra-abdominal process.
2. Atrophic changes of the right kidney, probably related to arterial stenosis.
3. Severe aortic atherosclerotic changes with probable focal aortic narrowing as above.
4. Moderate fat-containing umbilical hernia.
5. Moderate compression deformity T12 vertebral b
A/P:
# Acute blood loss anemia likely from upper GI bleed in setting of DAPT use with ASA/Plavix
Hemoglobin 9.8 today from baseline 14.5
Cont to trend Hgb
Cont IV PPI twice a day
Clear liquid diet for now until further directed by GI
GI consulted
# Chronic diastolic heart failure
EF from 11/2022 with EF 55%, Grade 1 diastolic dysfunction
OK to hold lasix for now with likely acute GIB
cont HANDKERCHIEF FOLDER metoprolol with holding parameter
# h/o CAD s/p PCI LAD August 31
continue with asa
hold plavix (pt is planning to have Plavix stopped in September 2023 anyway)
# HLD
Cont statin
# Essential Hypertension
Cont metoprolol with holding parameter
# Insulin Dependent Diabetes Mellitus
Monitor sugars and continue coverage insulin
Cont decreased Insulin 70/30 at 10units BID with current clear liquid diet
# Hypothyroidism
Continue Levothyroxine
# Morbid Obesity due Excess Calories
DVT prophylaxis�scd
DNR
DW RN
Anticipated Discharge: > 48 hours
Subjective/Interval History
-
Date of Service: August 13, 2023
Objective Data
-
Labs:
Laboratory Results
08/13/23
07:21
WBC 7.0
Hgb 9.8 L
Hct 29.8 L
Plt Count 239
Sodium 134 L
Potassium 4.9
Chloride 109 H
Carbon Dioxide 24
BUN 35 H
Creatinine 1.1 H
Glucose 158 H
Calcium 8.9
Vital Signs:
Vital Signs
Temp Pulse Resp BP Pulse Ox
36.6 C 68 16 146/57 96
08/13/23 07:00 08/13/23 07:00 08/13/23 07:00 08/13/23 07:00 08/13/23 08:00
I&O
08/12/23 08/13/23 08/14/23
06:59 06:59 06:59
Intake Total 450 / 450
Balance 450 / 450
Review of Systems
-
All other systems: Reviewed and negative
Physical Exam
-
General: Well Developed, Well Nourished, No Apparent Distress, Comfortable, Conversant and Obese; Negative Respiratory Distress
HEENT: Normocephalic, Atraumatic, Nose Appears Normal and Ears Appear Normal; Negative Oxygen
Respiratory: Clear to Auscultation and Non Labored Respirations; Negative Accessory Resp Muscle Use
Cardiac: Regular Rhythm and S1/S2
GI: Soft, Nontender, Nondistended and Normal Bowel Sounds
Skin: Warm and Dry
Neuro: Awake, Alert, Oriented, AO x 3 and Nonfocal/Grossly Intact
Psych: Calm and Intact Judgement/Insight
Data Reviewed
-
Labs: Labs Reviewed by me
[2023-08-13 11:46] LABS: Glucose - Point of Care 212 mg/dl (70-99)
[2023-08-13] MEDS: NOVOLOG FLEXPEN-LOW RESISTANCE 2 UNITS SC ×2 (12:25→17:23)
--- NOTE | 2023-08-13 13:44 | CM ---
Patient seen bedside with sonJefe, initial assessment completed. Patient resides with son in a ranch style home, two steps to enter. Patient reports she has a rollator, walker, and cane at home. Patient reports she has a history of [facility] in the
past, reports history with outpatient therapy through [facility]. Patient confirms PCP Mayur Vo, pharmacy [facility], confirms prescription coverage. Per PT notes, patient refused PT. CM will continue to follow for all discharge planning needs.
Plan; home no needs, watch for PT/OT evals if patient agreeable.
[2023-08-13 15:16] LABS: Hemoglobin 11.3 g/dL (12.0-16.0)
[2023-08-13 16:53] LABS: Glucose - Point of Care 213 mg/dl (70-99)
[2023-08-13 20:23] LABS: Hemoglobin 10.7 g/dL (12.0-16.0)
[2023-08-13] MEDS: FLUSH (NSS) 2 FLUSH IV (20:36)
[2023-08-13 22:00] LABS: Glucose - Point of Care 173 mg/dl (70-99)
[2023-08-14] VITALS (7 sets, daily range): BP systolic 90–153; BP diastolic 43–86; BMI 36.9
[2023-08-14] MEDS: SYNTHROID 50 MCG PO (06:29)
[2023-08-14 06:58] LABS: Glucose - Point of Care 186 mg/dl (70-99)
[2023-08-14 07:02] LABS: Hematocrit 30.2 % (37.0-47.0); Mean Corp Hgb Conc. 33.1 g/dL (33.0-37.0); Mean Corpuscular Hgb 31.6 pg (27.0-31.0); Mean Corpuscular Volume 95.6 fL (81.0-99.0); Mean Platelet Volume 9.5 fL (7.4-10.4); Platelet Count 251 10^3/uL (130-400); Red Blood Cell Count 3.16 10^6/uL (4.20-5.40); Red Cell Dist. Width 13.3 % (11.5-14.5); White Blood Cell Count 7.1 10^3/uL (4.8-10.8)
[2023-08-14 07:48] LABS: Blood Urea Nitrogen 26 mg/dl (7-17); Carbon Dioxide 22 mmol/L (22-30); Chloride 109 mmol/L (98-107); Estimated Creatinine Clearance 39 ml/min; Glucose 155 mg/dl (70-99); Potassium 4.9 mmol/L (3.5-5.1); Sodium 136 mmol/L (135-145); eGFR 48.63
[2023-08-14] MEDS: TOPROL XL 25 MG PO (08:51)
[2023-08-14] MEDS: PROTONIX IV 40 MG IV ×2 (08:52→20:39)
[2023-08-14] MEDS: ASPIR LOW (ENTERIC COATED) 81 MG PO (08:52)
[2023-08-14] MEDS: NSS (PRESERVATIVE FREE) 10 ML IV ×2 (08:52→20:39)
[2023-08-14] MEDS: NOVOLOG FLEXPEN-LOW RESISTANCE 1 UNITS SC ×2 (08:52→12:59)
[2023-08-14] MEDS: NOVOLOG MIX 70/30 FLEXPEN 10 UNITS SC ×2 (08:53→17:41)
[2023-08-14 11:55] LABS: Glucose - Point of Care 174 mg/dl (70-99)
--- NOTE | 2023-08-14 13:08 | W.PN.HOSP.TC ---
Today's Communication/Plan
-
see A/P
Assessment / Plan
Assessment / Plan
HPI: 88-year-old female with past medical history of hypertension, diabetes, CAD status post stent, chronic thoracic compression fracture who presented with black stool for 1 day.
She also has chronic lower back pain ongoing for several months.
CT abdomen pelvis with Mild to moderate rectal wall thickening suggesting some form of proctitis. No signs of abscess formation identified. No other signs of an acute intra-abdominal process.
2. Atrophic changes of the right kidney, probably related to arterial stenosis.
3. Severe aortic atherosclerotic changes with probable focal aortic narrowing as above.
4. Moderate fat-containing umbilical hernia.
5. Moderate compression deformity T12 vertebral b
A/P:
# Acute blood loss anemia likely from upper GI bleed in setting of DAPT use with ASA/Plavix
Hemoglobin 10.0 today from baseline 14.5
Cont to trend Hgb
Cont IV PPI twice a day
Clear liquid diet for now until further directed by GI
GI on board
# Chronic diastolic heart failure
EF from 11/2022 with EF 55%, Grade 1 diastolic dysfunction
OK to hold lasix for now with likely acute GIB
cont EVALU[employer] TRANSFER STUDENTS metoprolol with holding parameter
# h/o CAD s/p PCI LAD August 31
continue with asa
hold plavix (pt is planning to have Plavix stopped in September 2023 anyway)
# HLD
Cont statin
# Essential Hypertension
Cont metoprolol with holding parameter
# Insulin Dependent Diabetes Mellitus
Monitor sugars and continue coverage insulin
Cont decreased Insulin 70/30 at 10units BID with current clear liquid diet
# Hypothyroidism
Continue Levothyroxine
# Morbid Obesity due Excess Calories
DVT prophylaxis�scd
DNR
DW RN
Anticipated Discharge: 24 - 48 hours
Subjective/Interval History
-
Date of Service: August 14, 2023
Objective Data
-
Labs:
Laboratory Results
08/14/23
06:27
WBC 7.1
Hgb 10.0 L
Hct 30.2 L
Plt Count 251
Sodium 136
Potassium 4.9
Chloride 109 H
Carbon Dioxide 22
BUN 26 H
Creatinine 1.1 H
Glucose 155 H
Calcium 9.0
Vital Signs:
Vital Signs
Temp Pulse Resp BP Pulse Ox
36.6 C 75 18 121/59 100
08/14/23 11:00 08/14/23 11:00 08/14/23 11:00 08/14/23 11:00 08/14/23 11:00
I&O
08/13/23 08/14/23 08/15/23
06:59 06:59 06:59
Intake Total 1949
Balance 1949
Review of Systems
-
All other systems: Reviewed and negative
Physical Exam
-
General: Well Developed, Well Nourished, No Apparent Distress, Comfortable, Conversant and Obese; Negative Respiratory Distress
HEENT: Normocephalic, Atraumatic, Nose Appears Normal and Ears Appear Normal; Negative Oxygen
Respiratory: Clear to Auscultation and Non Labored Respirations; Negative Accessory Resp Muscle Use
Cardiac: Regular Rhythm and S1/S2
GI: Soft, Nontender, Nondistended and Normal Bowel Sounds
Skin: Warm and Dry
Neuro: Awake, Alert, Oriented, AO x 3 and Nonfocal/Grossly Intact
Psych: Calm and Intact Judgement/Insight
Data Reviewed
-
Labs: Labs Reviewed by me
--- NOTE | 2023-08-14 14:39 | W.PN.GI.CBS2 ---
Today's Communication / Plan
-
egd tmwr, trend hb/monitor BM, ppi bid
Assessment / Plan
-
88-year-old female with past medical history hypertension, diabetes, CAD status postcardiac stent, gastroesophageal reflux, chronic thoracic compression fractures who presents to the emergency room with melena. The patient states that yesterday she
was having a bowel movement. She states that she is usually constipated and uses a stool softener to have a bowel movement. She usually has soft pebble-like stools every couple days. She took more stool softeners. She states that she then started
having black bowel movements. This brought her to the emergency room for further evaluation. There she was found to have hemoglobin of 11.3 with OB positive stool. CT showing proctitis. Patient with melena on rectal performed by myself with drop
in Hgb down to 9.8 and BUN of 50 on arrival. No further BMs since here. On PPI now. Was not at home. Plavix being held.
Impression:
GI bleed (melena)
Acute blood loss anemia
-Patient currently stable without any further episodes of bleeding, VSS, Plavix on hold, BUN trending down.
Chronic constipation
Suspect UGIB given melena and elevate BUN - stable hb no further bleeding -I discussed with patient and son at length that Plavix and aspirin do not cause bleeding but exacerbate an underlying cause of bleeding.
Last plavix dose Fri AM 08/11
Recommendations
-Continue on Pantoprazole 40 mg IV BID
-low fiber/DM diet today, NPO after midnight
-Plan upper endoscopy tomorrow. Risk, alternatives, benefits discussed with patient and son Jefe on phone [phone]. Risks including but not limited to bleeding, infection, perforation. However, if we do not do endoscopy, we will not know the
source of bleeding. Discussed the manage of endoscopy would also be if we find a source we could potentially stop it. If the upper endoscopy is negative, neck step would be colonoscopy and if that is negative then capsule endoscopy. This was
reviewed with the patient and son. We discussed with recent Plavix there are limited interventions but we can take a look and there are some interventions we can still do. For now she agrees and if she changes her mind, I gave her my card she will
call me.
-Will d/w Dr. Akhtar if patient needs plavix senior care per notes plan to stop in one year; continue ASA
-Stool seen on CT imaging suggesting proctitis, soft stool on rectal exam (patient took more colace) Not uncomfortable now, no impaction.
Spent extensive time d/w patient and son above
Total Time Spent with Patient (in minutes): 50 min
Subjective
Subjective
Date of Service: August 14, 2023
no bm today no pain
hungy and cold and has pain from lying in her bed
Objective
Data Reviewed
Laboratory Data:
Laboratory Results
08/14/23 06:27
08/14/23 06:27
Laboratory Results
PT 14.1 Sec (11.4-14.6) 08/12/23 13:32
INR 1.11 08/12/23 13:32
APTT 31.2 Sec (23.4-35.0) 08/12/23 13:32
Total Bilirubin 0.5 mg/dl (0.2-1.3) 08/12/23 13:32
AST 27 U/L (14-36) 08/12/23 13:32
ALT 18 U/L (0-35) 08/12/23 13:32
Alkaline Phosphatase 93 U/L (38-126) 08/12/23 13:32
Vital Signs and I&O:
Vital Signs
Temp Pulse Resp BP Pulse Ox
97.8 F 75 18 121/59 100
08/14/23 11:00 08/14/23 11:00 08/14/23 11:00 08/14/23 11:00 08/14/23 11:00
I&O
08/13/23 08/14/23 08/15/23
06:59 06:59 06:59
Intake Total 1949
Balance 1949
Physical Exam
Physical Exam
GI: Non Distended and Non Tender
[2023-08-14 16:58] LABS: Glucose - Point of Care 280 mg/dl (70-99)
[2023-08-14] MEDS: LIPITOR 10 MG PO (17:41)
[2023-08-14] MEDS: NOVOLOG FLEXPEN-LOW RESISTANCE 3 UNITS SC (17:42)
[2023-08-14 21:36] LABS: Glucose - Point of Care 144 mg/dl (70-99)
[2023-08-15] VITALS (7 sets, daily range): BP systolic 111–156; BP diastolic 43–103; BMI 37.0
[2023-08-15] MEDS: SYNTHROID 50 MCG PO (05:59)
[2023-08-15 06:22] LABS: Hematocrit 31.3 % (37.0-47.0); Hemoglobin 10.4 g/dL (12.0-16.0); Mean Corp Hgb Conc. 33.2 g/dL (33.0-37.0); Mean Corpuscular Hgb 31.7 pg (27.0-31.0); Mean Corpuscular Volume 95.4 fL (81.0-99.0); Mean Platelet Volume 9.5 fL (7.4-10.4); Platelet Count 288 10^3/uL (130-400); Red Blood Cell Count 3.28 10^6/uL (4.20-5.40); Red Cell Dist. Width 13.7 % (11.5-14.5); White Blood Cell Count 8.2 10^3/uL (4.8-10.8)
[2023-08-15 06:30] LABS: Glucose - Point of Care 123 mg/dl (70-99)
[2023-08-15 06:46] LABS: Blood Urea Nitrogen 29 mg/dl (7-17); Calcium 9.2 mg/dl (8.4-10.2); Carbon Dioxide 22 mmol/L (22-30); Chloride 108 mmol/L (98-107); Estimated Creatinine Clearance 29 ml/min; Glucose 113 mg/dl (70-99); Potassium 4.8 mmol/L (3.5-5.1); Sodium 137 mmol/L (135-145); eGFR 33.52
[2023-08-15 07:54] LABS: Glucose - Point of Care 151 mg/dl (70-99)
[2023-08-15] MEDS: TOPROL XL 25 MG PO (09:38)
[2023-08-15] MEDS: ASPIR LOW (ENTERIC COATED) 81 MG PO (09:38)
[2023-08-15] MEDS: NSS (PRESERVATIVE FREE) 10 ML IV (09:39)
[2023-08-15] MEDS: PROTONIX IV 40 MG IV (09:39)
[2023-08-15] MEDS: NOVOLOG FLEXPEN-LOW RESISTANCE SC ×2 (09:45→13:26)
[2023-08-15] MEDS: NOVOLOG MIX 70/30 FLEXPEN 10 UNITS SC (09:45)
--- NOTE | 2023-08-15 10:40 | W.PN.HOSP.TC ---
Today's Communication/Plan
-
EGD today
SEBASTIEN workup
Assessment / Plan
Assessment / Plan
HPI: 88-year-old female with past medical history of hypertension, diabetes, CAD status post stent, chronic thoracic compression fracture who presented with black stool for 1 day.
She also has chronic lower back pain ongoing for several months.
CT abdomen pelvis with Mild to moderate rectal wall thickening suggesting some form of proctitis. No signs of abscess formation identified. No other signs of an acute intra-abdominal process.
2. Atrophic changes of the right kidney, probably related to arterial stenosis.
3. Severe aortic atherosclerotic changes with probable focal aortic narrowing as above.
4. Moderate fat-containing umbilical hernia.
5. Moderate compression deformity T12 vertebral b
Assessment:
Acute blood loss anemia likely from upper GI bleed (melena) in setting of DAPT use with exacerbating ASA/Plavix
- follow Hb; 10.4 today
- continue IV PPI BID
- EGD today
- GI following
Chronic diastolic heart failure
- EF from 11/2022 with EF 55%, Grade 1 diastolic dysfunction
- ok to hold Lasix for now with likely acute GIB
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
SEBASTIEN on CKD stage 3b
- Cr baseline appears to be 1.1 to 1.5
- bladder scans
- check urine studies
- may be related to some low BP readings recently
h/o CAD s/p PCI LAD August 31
- continue with asa
- hold plavix (pt is planning to have Plavix stopped in September 2023)
HLD
- cont statin
Essential Hypertension
- cont metoprolol with holding parameter
Insulin Dependent Diabetes Mellitus
- Monitor sugars and continue coverage insulin
- Cont decreased Insulin 70/30 at 10 units BID (home dose 35 units) with current clear liquid diet
Hypothyroidism
- continue Levothyroxine
Morbid Obesity due Excess Calories
Chronic constipation
DVT prophylaxis: SCDs
Code: DNR
Anticipated Discharge: 24 - 48 hours
Subjective/Interval History
-
Date of Service: August 15, 2023
denies any new complaints
for EGD today
Objective Data
-
Labs:
Laboratory Results
08/15/23
04:51
WBC 8.2
Hgb 10.4 L
Hct 31.3 L
Plt Count 288
Sodium 137
Potassium 4.8
Chloride 108 H
Carbon Dioxide 22
BUN 29 H
Creatinine 1.5 H
Glucose 113 H
Calcium 9.2
Vital Signs:
Vital Signs
Temp Pulse Resp BP Pulse Ox
97.9 F 62 17 156/53 96
08/15/23 07:30 08/15/23 07:30 08/15/23 07:30 08/15/23 07:30 08/15/23 07:30
I&O
08/14/23 08/15/23 08/16/23
06:59 06:59 06:59
Intake Total 1949
Balance 1949
Physical Exam
-
General: No Apparent Distress
HEENT: Normocephalic and Atraumatic
Respiratory: Negative Wheezes
Cardiac: Regular Rhythm and S1/S2
GI: Soft
Genito-urinary: No Costovertebral Tender
Musculoskeletal: No Edema
Neuro: AO x 3
Hematologic / Lymphatic: No Lymphadenopathy
Psych: Calm
Data Reviewed
-
Total Time Spent with Patient (in minutes): 42
Labs: Labs Reviewed by me
--- NOTE | 2023-08-15 11:37 | CM ---
Addendum entered by Melody Villagran 08/15/23 14:32:
Patient for discharge today, home no needs. IMM signed, placed in chart. Patients son to provide transportation home.
Original Note:
Patient seen bedside, reports no needs to CM at this time, Per Hospitalist, patient for EGD today. CM will continue to follow for all discharge planning needs. Per PT, patient refusing PT.
Plan; home no needs likely.
[2023-08-15 11:49] LABS: Glucose - Point of Care 156 mg/dl (70-99)
[2023-08-15 13:10] LABS: Glucose - Point of Care 118 mg/dl (70-99)
--- NOTE | 2023-08-15 13:36 | W.PN.UPDATE ---
Update Note
Progress Note Update
I s/w Dr. Akhtar - ok to hold plavix bc she basically completed a year of dual AC and now has GIB.
Continue ASA.
Has appt with Dr. Flaherty in September.
Updated Dr. Santiago.
--- NOTE | 2023-08-15 14:14 | W.DS.TRANS ---
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
-
Discharge Instructions:
Discharge Diagnosis/Procedures anemia and GI bleed s/p EGD 5/6
Diet Diabetic, Carb Controlled
Activity As tolerated
Blood Work repeat CBC and BMP in 1 week
Instructions:
Stand-Alone Forms:
Changes to Home Medications: Yes
Discharge Medications:
DC Medications w/original date entered in [employer]
levothyroxine 50 mcg tablet 50 mcg PO DAILY@06 Thyroid 11/26/14
telmisartan 40 mg tablet 40 mg PO DAILY Blood pressure 11/09/18
cholecalciferol (vitamin D3) 25 mcg (1,000 unit) capsule (Vitamin D3) 1,000 unit PO DAILY Supplement 11/11/18
aspirin 81 mg tablet,delayed release 81 mg PO DAILY heart disease/condition #20 tabs 08/23/22
metoprolol succinate 25 mg tablet,extended release 24 hr 25 mg PO DAILY Heart disease/condition #30 tabs 08/23/22
atorvastatin 10 mg tablet (Lipitor) 10 mg PO Q48H@1700 High Cholesterol 08/12/23
furosemide 20 mg tablet 20 mg PO Q48H Fluid Retention/Swelling 08/12/23
insulin human U-100 NPH-regulr 70-30 mix 100 unit/mL subcutaneous susp (Novolin 70/30 U-100 Insulin) 30 unit (0.3 mL) SC BID@0800,1700 Diabetes #0 mL 08/15/23
pantoprazole 40 mg tablet,delayed release (Protonix) 40 mg PO BID #60 tabs 08/15/23
Home Medication Changes
hold ARB and Lasix until repeat BMP
PPI BID added
insulin reduced to 30 units
Pending Results: No
Total time spent discharging patient (in min): 42
== END 2023-08-15 16:16 | disposition home or self-care (01) | DRG 378 ==
LOC: 4 WEST ACU 16:51
PROVIDERS: Registered Nurse; ADMITTING PHYSICIAN Internal Medicine; ATTENDING PHYSICIAN Internal Medicine; CONSULT PHYSICIAN Internal Medicine Gastroenterology; EMERGENCY PHYSICIAN Emergency Medicine; FAMILY PHYSICIAN Family Medicine
PROC: 0DB68ZX Excision of Stomach, Via Natural or Artificial Opening Endoscopic, Diagnostic (ICD-10-PCS; 2023-08-15)
DX: K25.4 Chronic or unspecified gastric ulcer with hemorrhage (principal); D62 Acute posthemorrhagic anemia; I50.32 Chronic diastolic (congestive) heart failure; I13.0 Hypertensive heart and chronic kidney disease with heart failure and stage 1 through stage 4 chronic kidney disease, or unspecified chronic kidney disease; N17.9 Acute kidney failure, unspecified; N18.32 Chronic kidney disease, stage 3b; E11.22 Type 2 diabetes mellitus with diabetic chronic kidney disease; Z79.4 Long term (current) use of insulin; E11.621 Type 2 diabetes mellitus with foot ulcer; E11.36 Type 2 diabetes mellitus with diabetic cataract; E03.9 Hypothyroidism, unspecified; E66.01 Morbid (severe) obesity due to excess calories; Z66 Do not resuscitate; E78.00 Pure hypercholesterolemia, unspecified; K31.89 Other diseases of stomach and duodenum; Z79.02 Long term (current) use of antithrombotics/antiplatelets
CPT/HCPCS: 88305; 74177; 80048; 80053; 82962; 83036; 85018; 85025; 85027; 85610; 85730; 86850; 86900; 86901; 88342; 96374; 99285; Q9967

== ENCOUNTER → 2023-08-26 12:39 | Outpatient (REF) | payer MEDICARE, OTHER, SELFPAY | LOC: RAD 12:39 | PROVIDERS: ATTENDING PHYSICIAN Family Medicine | DX: S22.080S Wedge compression fracture of T11-T12 vertebra, sequela (principal) | CPT/HCPCS: 72072; 72110 ==

== ENCOUNTER 2024-01-22 01:57 | Observation (INO) | payer MEDICARE, OTHER, SELFPAY ==
[2024-01-21 22:11] VITALS: BMI 38.3
[2024-01-21] MEDS: NSS 1000 IV (22:33)
[2024-01-21 22:36] VITALS: BP 161/114
[2024-01-21 22:39] LABS: % Basophils 0.3 % (0-2); % Immature Granulocytes 0.2 % (0-0.5); % Lymphocytes 13.6 % (20.5-51.1); % Monocytes 10.6 % (1.7-9.3); % Neutrophils 75.3 % (42.2-75.2); Absolute Lymphocytes 1.2 10^3/uL (1.2-3.4); Absolute Monocytes 0.9 10^3/uL (0.1-0.6); Absolute Neutrophils 6.6 10^3/uL (1.4-6.5); Hematocrit 46.3 % (37.0-47.0); Hemoglobin 15.2 g/dL (12.0-16.0); Mean Corp Hgb Conc. 32.8 g/dL (33.0-37.0); Mean Corpuscular Hgb 30.8 pg (27.0-31.0); Mean Corpuscular Volume 93.7 fL (81.0-99.0); Mean Platelet Volume 9.6 fL (7.4-10.4); Nucleated Red Blood Cells % 0 %; Platelet Count 240 10^3/uL (130-400); Red Blood Cell Count 4.94 10^6/uL (4.20-5.40); Red Cell Dist. Width 14.1 % (11.5-14.5); White Blood Cell Count 8.8 10^3/uL (4.8-10.8)
--- NOTE | 2024-01-21 22:48 | ED.GENMED ---
History of Present Illness
General
Chief Complaint: Abdominal Symptoms
Source: patient
Exam Limitations: none
Time Seen by Provider: 01/21/24 22:14
Nursing documentation reviewed up to this point in time: agreed with
History of Present Illness
History of Present Illness:
88-year-old female with a past medical history of hypertension, diabetes, PUD who presents to the emergency room for evaluation of abdominal pain, nausea, vomiting, diarrhea. Patient reports onset of symptoms yesterday and they have been constant
since that time. She reports diffuse abdominal pain and distention. She reports associated nausea and she says multiple episodes of nonbloody nonbilious emesis over the past 24 hours. She says initially yesterday she was constipated and thought
that nausea and pain was related to constipation and so she took a stool softener; since then in addition to nausea and pain she has also had profuse watery nonbloody diarrhea. She says she is feeling increasingly fatigued and shaky and came to the
emergency room for assessment. She has not noticed any fever. She has not had any chest pain or breathing issues, URI symptoms. Denies urinary symptoms. She does have prior history of cholecystectomy.
Past History
Past History
ED Past Medical History: HTN, Hypercholesterolemia, IDDM, Hypothyroidism, Other (Diverticulitis, back pain, chest pain, edema, diverticulosis, stress incontinence, arthritis, fractures, cataracts, impaired vision, anxiety, Sciatic pain, UTI, Ulcer
on the toe) and Other (achilles tendon rupture 2014)
ED Past Surgical History: Appendectomy, Cholecystectomy, Orthopedic (Knee arthroscopy), Tonsilectomy and Other (Cyst from breast removed, rectal surgery)
Social History
Tobacco: Non-smoker
Alcohol: None
Drug: None
Personal:
Living: with family (Son)
Employment: Retired
Family History
Family History: Other
Review of Systems
Review of Systems
All Other Systems: ROS reviewed and negative except as documented in HPI and ROS
Constitutional: Reports fatigue and chills; Denies fever
EENT: Denies sore throat or runny nose
Respiratory: Denies cough or trouble breathing
Cardiac: Denies chest pain or palpitations
ABD/GI: Reports abdominal pain, nausea, vomiting and diarrhea; Denies bloody stools or black stools
: Denies dysuria, frequency or flank pain
Musculoskeletal: Denies neck pain or back pain
Neurological: Denies dizzy or headache
Phy Exam
Physical Exam
Physical Exam:
General: Awake, alert, oriented x3; tremulous and appears somewhat uncomfortable holding emesis bag
Head: Normocephalic, atraumatic
Eyes: Conjunctiva normal, sclera anicteric
Throat: Airway intact, handling secretions
Neck: Trachea midline, supple without meningismus
Lungs: Clear to auscultation bilaterally, no wheezing, rales, rhonchi
Heart: Regular rate and rhythm, no murmurs, gallops, or rubs
Abd: Soft, distended and tympanic, diffusely tender to palpation; she has small umbilical hernia soft and reducible
Neuro: No gross deficits
Skin: no rash
Extremities: Warm and well-perfused
Scores
Heart Failure Risk
Heart Failure Risk Score: Not Applicable
Heart Score for Chest Pain Patients
STEMI patient?: Not applicable
Withdrawal Assessment of Alcohol
Withdrawal Assessment Completed?: Not applicable
Course
Orders/Labs/Results
Orders:
Orders
01/21/24 22:10
IV Insert/Care/Rem.- Treatment PRN
Urinalysis Reflex To Culture Urgent
Date Specimen was Collected: 01/21/24
Time Specimen was Collected: 22:10
01/21/24 22:16
0.9% Sodium Chloride 1000 ml [Nss] 1,000 ml IV BOLUS
01/21/24 22:26
COVID-19 Antigen Urgent
Source: Nasal Swab
Complete Blood Count/With Diff Urgent
Comprehensive Metabolic Panel Urgent
Lipase Urgent
Influenza A+B Rapid Molecular Urgent
KIMBERLY Source: Nasal Swab
Specimen Description:
01/21/24 22:48
Electrocardiogram (*1) Urgent
Reason for Study: QTc Monitoring
CT Abd/pel Without Iv Or Oral Urgent
Reason For Exam: N/V/D, abd pain and distention
EKG- Treatment ONCE
Morphine Sulfate 4 mg IV NOW STA
Ondansetron Injectable [Zofran] 4 mg IV NOW STA
01/22/24 00:15
Lactate Level [Lactic Acid] Urgent
STOOL [C difficile Antigen & Toxins] Urgent
KIMBERLY Source: Feces/Stool
Specimen Description:
Date Specimen was Collected: 01/22/24
Time Specimen was Collected: 00:20
Stool Culture Urgent
KIMBERLY Source: Feces/Stool
Specimen Description:
Date Specimen was Collected: 01/22/24
Time Specimen was Collected: 00:20
0.9% Sodium Chloride 1000 ml [Nss] 1,000 ml IV BOLUS
HYDROmorphone [Dilaudid] 0.5 mg IV NOW STA
Abnormal Lab Results
01/21/24
22:26
MCHC 32.8 L g/dL
(33.0-37.0)
Absolute Neuts (auto) 6.6 H 10^3/uL
(1.4-6.5)
Absolute Monos (auto) 0.9 H 10^3/uL
(0.1-0.6)
Neutrophils % 75.3 H %
(42.2-75.2)
Lymphocytes % 13.6 L %
(20.5-51.1)
Monocytes % 10.6 H %
(1.7-9.3)
Chloride 111 H mmol/L
(98-107)
Carbon Dioxide 19 L mmol/L
(22-30)
BUN 51 H mg/dl
(7-17)
Creatinine 1.7 H mg/dL
(0.6-1.0)
01/21/24 22:26
01/21/24 22:26
Vital Signs
Initial and Last Documented VS:
Initial Vital Signs
Pulse Resp Pulse Ox
75 14 97
01/21/24 22:14 01/21/24 22:14 01/21/24 22:14
Last Documented Vital Signs
Pulse Resp BP Pulse Ox
78 23 161/114 96
01/21/24 22:30 01/21/24 22:30 01/21/24 22:36 01/21/24 22:30
MDM/Problems Addressed
Differential Diagnosis Includes:
Gastroenteritis, colitis, bowel obstruction, fecal impaction, pancreatitis
MDM/Problems Addressed:
88-year-old female presents to the emergency room for evaluation of nausea, vomiting, diarrhea and abdominal pain/distention developing over the past 24 hours. Hypertensive otherwise normal vitals. Physical exam as above. Plan to place an IV
check labs including a CBC and a CMP, lipase. Check urinalysis. Swab for COVID and flu. Check CT abdomen pelvis. Check stool studies. Provide fluids, pain control, antiemetic. EKG for QTc monitoring. Reassess after the above.
Labs reviewed: CBC unremarkable, CMP shows SEBASTIEN with creatinine of 1.7 from a baseline of 1.1. Elevated BUN. Potassium acceptable. COVID and flu negative. CT abdomen pelvis shows signs consistent with enterocolitis. Given significant pain and
dehydration we will plan to admit for continued monitoring and care. Holding antibiotics�no bloody diarrhea, no fever or leukocytosis and no recent travel or antibiotics to suggest that she is at high risk for bacterial enterocolitis; likely a
viral infection. Case discussed with hospitalist for admission.
Acute Exacerbation and/or Progression of Chronic Illness:
Acutely hypertensive
Acute Exacerbation and/or Progression of Chronic Illness: HTN
*Radiology
Radiology exam reviewed: radiology read reviewed
*Pulse Oximetry
Patient hypoxic: no
*Critical Care Note
Total Time (30-74mins, 75-104mins- exclusive of procedures): Not Applicable
Data Reviewed
Source: patient, records and family
Prescriptions/Medications Considered But Not Given:
Considered treating with antibiotics as above
Patient Management
Discussion with other providers: Hospitalist (Discussed with hospitalist)
Escalation/DeEscalation of care consider admission/obs:
Admission indicated
ED Attending Note
-
Portions of this chart may have been created with voice recognition software.� Occasional wrong word or��sound alike� substitutions may have occurred due to the inherent limitations of voice recognition software.
Discharge Plan
Departure
Prescriptions:
No Action
levothyroxine 50 MCG tablet
50 mcg PO DAILY@06
telmisartan 40 MG tablet
40 mg PO DAILY
cholecalciferol (vitamin D3) [Vitamin D3] 1,000 UNIT capsule
1,000 unit PO DAILY
aspirin 81 mg Tablet,Delayed Release (Dr/Ec)
81 mg PO DAILY Qty: 20 0RF
metoprolol succinate 25 mg Tablet Extended Release 24 Hr
25 mg PO DAILY Qty: 30 11RF
atorvastatin [Lipitor] 10 mg Tablet
10 mg PO Q48H@1700
furosemide 20 mg tablet
20 mg PO Q48H
pantoprazole [Protonix] 40 mg tablet,delayed release (DR/EC)
40 mg PO BID Qty: 60 1RF
Novolin 70/30 U-100 Insulin 100 unit/mL (70-30) suspension
30 unit SC BID@0800,1700 Qty: 0 0RF
Referrals:
Fracisco Valencia I., DO [Family Provider] -
Interventions
Interventions:
*Risk Screen - Suicide Last Done: 01/21/24 22:11
*General Assessment Last Done: 01/21/24 22:11
*Neglect/Abuse Screening Last Done: 01/21/24 22:11
ED- Fall Risk Assessment Last Done: 01/21/24 22:34
*ED COVID-19 Vaccine History Last Done: 01/21/24 22:11
KO-Mghyni-Osooynvtys Assessment Last Done: 01/21/24 22:34
Discharge Date and Time
Print Language: GREEK
[2024-01-21 22:56] LABS: COVID-19 Antigen Negative (Negative)
[2024-01-21 23:00] VITALS: BP 171/115
[2024-01-21 23:01] LABS: ALT (SGPT) 22 U/L (0-35); AST (SGOT) 36 U/L (14-36); Alkaline Phosphatase 80 U/L (38-126); Blood Urea Nitrogen 51 mg/dl (7-17); Calcium 9.6 mg/dl (8.4-10.2); Carbon Dioxide 19 mmol/L (22-30); Chloride 111 mmol/L (98-107); Estimated Creatinine Clearance 26 ml/min; Glucose 99 mg/dl (70-99); Lipase 52 U/L (23-300); Potassium 4.8 mmol/L (3.5-5.1); Sodium 144 mmol/L (135-145); Total Bilirubin 0.5 mg/dl (0.2-1.3); Total Protein 6.7 g/dl (6.3-8.2); eGFR 28.84
[2024-01-21] MEDS: ZOFRAN 4 MG IV (23:03)
[2024-01-21] MEDS: MORPHINE SULFATE 4 MG IV (23:04)
[2024-01-22] MEDS: DILAUDID 0.5 MG IV (00:22)
[2024-01-22] MEDS: NSS 1000 IV (00:23)
--- NOTE | 2024-01-22 01:07 | HPS.HSE ---
Family Physician
-
Family Physician: Fracisco Valencia
Chief Complaint
-
Nausea vomiting diarrhea and abdominal pain
History of Present Illness
This is an 88-year-old female with past medical history significant for insulin-dependent diabetes, hypertension, hyperlipidemia, ischemic cardiomyopathy and hypothyroidism who presents to the emergency department with approximately 1 day of
abdominal symptoms as stated.
According to patient and son was at the bedside. She arose 24 hours ago with episode of nausea and feeling somewhat constipated. She had an episode of nonbloody and nonbilious emesis. She then took 1 dose of a laxative and has been having
diarrhea since. She reports that clear watery stools constantly throughout the day. She reports diffuse abdominal pain. She denies fevers or chills. No shortness of breath, dyspnea on exertion or chest pain. She has no known sick contact. Last
hospitalization was in August of this year. She denies any recent antibiotic use.
In the emergency department the patient was afebrile, hemodynamically stable and hypertensive with a blood pressure of 161/110, pulse of 78 and oxygen saturation of 96% on room air. ECG was unchanged from prior with sinus rhythm and 4 degree AV
block. The T wave inversions in the lateral leads are unchanged from prior. Labs mostly notable for a BUN of 51 and a creatinine of 1.7. LFTs and lipase WNL. CT scan of the abdomen pelvis showed small air-filled loops of colon and small air-fluid
levels within loops of small bowel which may represent ileus and or normal enterocolitis. COVID negative.
Medical History
Past Medical History
Past Medical History: Reports CAD (CAD w/ NSTEMI s/p PCI), HTN, Hypothyroidism and IDDM
Additional Past Medical History:
GI bleed
Past Surgical History: Reports None
Social History
Tobacco: Non-smoker
Alcohol: None
Drug: None
Living: With Family
Employment: Retired
Family History
Family History: Not pertinent
Allergies / Home Medications
Allergies reflects when Allergies were last updated in [employer]
Home Medications with original date entered in [employer]
Allergy/Medication List:
Allergies
Allergy/AdvReac Type Severity Reaction Status Date / Time
amoxicillin Allergy upset Verified 08/12/23 12:09
stomach
ciprofloxacin HCl Allergy upset Verified 08/12/23 12:09
[From Cipro] stomach
levofloxacin [From Levaquin] Allergy ITCHINESS Verified 08/12/23 12:09
Penicillins Allergy upset Verified 08/12/23 12:09
stomach
Sulfa (Sulfonamide Allergy Unknown Verified 08/12/23 12:09
Antibiotics)
tegaserod hydrogen maleate Allergy DRUG OFF Verified 08/12/23 12:09
[From Zelnorm] [employer] [facility]
Home Medications
levothyroxine 50 mcg tablet 50 mcg PO DAILY@06 Thyroid 11/26/14
telmisartan 40 mg tablet 40 mg PO DAILY Blood pressure 11/09/18
cholecalciferol (vitamin D3) 25 mcg (1,000 unit) capsule (Vitamin D3) 1,000 unit PO DAILY Supplement 11/11/18
aspirin 81 mg tablet,delayed release 81 mg PO DAILY heart disease/condition #20 tabs 08/23/22
metoprolol succinate 25 mg tablet,extended release 24 hr 25 mg PO DAILY Heart disease/condition #30 tabs 08/23/22
atorvastatin 10 mg tablet (Lipitor) 10 mg PO Q48H@1700 High Cholesterol 08/12/23
furosemide 20 mg tablet 20 mg PO Q48H Fluid Retention/Swelling 08/12/23
insulin human U-100 NPH-regulr 70-30 mix 100 unit/mL subcutaneous susp (Novolin 70/30 U-100 Insulin) 30 unit (0.3 mL) SC BID@0800,1700 Diabetes #0 mL 08/15/23
pantoprazole 40 mg tablet,delayed release (Protonix) 40 mg PO BID #60 tabs 08/15/23
Review of Systems
-
History Source: Patient and Family
Constitutional: Reports Chills
EENT: Reports No Symptoms
Respiratory: Reports No Symptoms
Cardiac: Reports No Symptoms
Abdomen/GI: Reports Abdominal Pain, Vomiting and Diarrhea
: Reports No Symptoms
Musculoskeletal: Reports No Symptoms
Skin: Reports No Symptoms
Neurological: Reports No Symptoms
Endocrine: Reports No Symptoms
Hematologic/Lymphatic: Reports No Symptoms
Psych: Reports No Symptoms
Physical Exam
Vital Signs
Vital Signs
Pulse Resp BP Pulse Ox
78 23 161/114 96
01/21/24 22:30 01/21/24 22:30 01/21/24 22:36 01/21/24 22:30
Physical Exam
General: No Apparent Distress
HEENT: NormoCephalic, Anicteric, Moist mucous membranes, Atraumatic and PERRLA
Respiratory: Clear
Cardiac: S1/S2 and Regular Rhythm
Breast: Deferred by me
GI: Soft, Non Tender, Normal Bowel Sounds and Distended
Rectal: Deferred by Provider
Genito-urinary: Deferred by me
Musculoskeletal: No Clubbing, No Cyanosis and No Edema
Skin: Warm
Neuro: AO x 3
Hematologic/Lymphatic: No Lymphadenopathy
Psych: Calm
Laboratory Results
-
01/21/24 22:26
01/21/24 22:26
Laboratory Results
Total Bilirubin 0.5 mg/dl (0.2-1.3) 01/21/24 22:26
AST 36 U/L (14-36) 01/21/24 22:26
ALT 22 U/L (0-35) 01/21/24 22:26
Alkaline Phosphatase 80 U/L (38-126) 01/21/24 22:26
Lipase 52 U/L (23-300) 01/21/24 22:26
Data Reviewed
-
CT Scan: Report Reviewed by me
Medical Tests (Nuc Med, Echo, EKG etc): Image Personally Visualized and interpreted
Lab Data: Labs Reviewed by me
Old Records: Reviewed
Impression/Plan
-
IMPRESSION:
Patient with IDDM, HTN, CAD s/p PCI, upper GI bleed in august in setting of DAPT presenting to ED with one day of N/V and diarrhea. She is non-toxic, hemodynamically stable, afebrile and without leukocytosis. CT scan c/w enterocolitis
PLAN:
1. Diarrhea - Acute onset without alarm findings. Possible SEBASTIEN noted. Suspect viral enteritis/enterocolitis. COVID/Flu negative
- admit to med/surg
- cdiff, stool cultures pending
- full liquid diet as tolerated
- IV fluids w/ LR for another 1 L overnight and reassess
- can start antidiarrheals if CDiff is negative.
2. DM II - Patient confirms she is only taking 25 am and 5 pm when blood glucose is < 100. Prior prescriptions have been as high as 80bid and in september 07 bid.
- continue 70/30 at 15 am and 5 pm given reduced po.
- sliding scale aspart ac
3. CAD
- continue asa 81, statin and metoprolol
4. CKD/SEBASTIEN - Patient with h/o fluctuating renal function likely with CKD/diabetic renal disease. Last Cr 1.5 in August but around 1 prior to that. Given history possibly pre-renal.
- IV fluids as above
- will continue arb for now
- patient does not need diuretics
DVT PPX - heparin sq
Code Status - DNR
[2024-01-22 01:57] LABS: Lactic Acid 0.9 mmol/L (0.7-2.0)
[2024-01-22 02:39] VITALS: BP 166/56
[2024-01-22 02:40] VITALS: BP 166/56
[2024-01-22 03:40] VITALS: BP 161/64; BMI 38.1
[2024-01-22] MEDS: LR 1000 IV ×2 (04:06→13:40)
[2024-01-22] MEDS: SYNTHROID 50 MCG PO (05:29)
[2024-01-22] MEDS: TYLENOL 650 MG PO (05:51)
[2024-01-22 07:05] VITALS: BP 133/61
[2024-01-22 07:18] LABS: Glucose - Point of Care 72 mg/dl (70-99)
[2024-01-22] MEDS: HEPARIN 5000 UNITS SC ×2 (08:21→17:14)
[2024-01-22] MEDS: COZAAR 25 MG PO (08:22)
[2024-01-22] MEDS: ASPIR LOW (ENTERIC COATED) 81 MG PO (08:22)
[2024-01-22] MEDS: TOPROL XL 25 MG PO (08:22)
[2024-01-22 08:42] LABS: Hemoglobin 12.2 g/dL (12.0-16.0); Mean Corpuscular Hgb 30.8 pg (27.0-31.0); Mean Corpuscular Volume 93.4 fL (81.0-99.0); Mean Platelet Volume 9.9 fL (7.4-10.4); Platelet Count 195 10^3/uL (130-400); Red Blood Cell Count 3.96 10^6/uL (4.20-5.40); Red Cell Dist. Width 14.4 % (11.5-14.5); White Blood Cell Count 6.4 10^3/uL (4.8-10.8)
[2024-01-22 09:20] LABS: Blood Urea Nitrogen 43 mg/dl (7-17); Calcium 8.3 mg/dl (8.4-10.2); Carbon Dioxide 15 mmol/L (22-30); Chloride 113 mmol/L (98-107); Estimated Creatinine Clearance 31 ml/min; Glucose 73 mg/dl (70-99); Sodium 140 mmol/L (135-145); eGFR 36.41
[2024-01-22] MEDS: NOVOLOG MIX 70/30 FLEXPEN 15 UNITS SC (09:38)
[2024-01-22] MEDS: VISBIOME 2 CAP PO (09:39)
--- NOTE | 2024-01-22 09:47 | W.PN.UPDATE ---
Update Note
Progress Note Update
Seen and examined
Overnight physician. Patient said diarrhea stopped. Seen. Multiple abdominal was. States symptoms started on Tuesday. Stated she ate potato salad which she probably thinks was the cause of her diarrhea. Currently denies any abdominal pain
nausea vomiting.
General: No Apparent Distress
HEENT: NormoCephalic, Anicteric, Moist mucous membranes, Atraumatic and PERRLA
Respiratory: Clear
Cardiac: S1/S2 and Regular Rhythm
Breast: Deferred by me
GI: Soft, Non Tender, Normal Bowel Sounds and Distended
Rectal: Deferred by Provider
Genito-urinary: Deferred by me
Musculoskeletal: No Clubbing, No Cyanosis and No Edema
Skin: Warm
Neuro: AO x 3
Hematologic/Lymphatic: No Lymphadenopathy
Psych: Calm
IMPRESSION:
Patient with IDDM, HTN, CAD s/p PCI, upper GI bleed in august in setting of DAPT presenting to ED with one day of N/V and diarrhea. She is non-toxic, hemodynamically stable, afebrile and without leukocytosis. CT scan c/w enterocolitis
PLAN:
1. Diarrhea - Acute onset without alarm findings. Possible SEBASTIEN noted. Suspect viral enteritis/enterocolitis. COVID/Flu negative
- cdiff, stool cultures neg. probiotics added
- full liquid diet as tolerated
- IV fluids
2. DM II - Patient confirms she is only taking 25 am and 5 pm when blood glucose is < 100. Prior prescriptions have been as high as 80bid and in september 07 bid.
- continue 70/30 at 15 am and 5 pm given reduced po.
- sliding scale aspart ac
3. CAD
- continue asa 81, statin and metoprolol
4. CKD/SEBASTIEN - Patient with h/o fluctuating renal function likely with CKD/diabetic renal disease. Last Cr 1.5 in August but around 1 prior to that. Given history possibly pre-renal.
- IV fluids as above
- will continue arb for now
- patient does not need diuretics
DVT PPX - heparin sq
Code Status - DNR
--- NOTE | 2024-01-22 11:44 | CM ---
Met with patient at bedside
Dx: Enterocolitis
CT scan abd pelvis performed.
PMH: IDDM, HTN, hypercholesterolemia, ischemic cardiomyopathy
IA completed. MALLORY form explained & signed. In chart
Lives in a ranch home with son, 1 step to enter
PLOF: Independent with rollator walker, local driving
DME: glucometer, walker, wheelchair, shower chair, grab bars
Has had [facility] in past & [facility] in past
no needs anticipated currently
PCP: Mayur Vo
Pharmacy: [facility]
PLAN: home, currently no needs anticipated.
[2024-01-22 12:22] LABS: Glucose - Point of Care 54 mg/dl (70-99)
[2024-01-22 12:48] LABS: Glucose - Point of Care 46 mg/dl (70-99)
[2024-01-22 13:07] LABS: Glucose - Point of Care 49 mg/dl (70-99)
[2024-01-22] MEDS: DEXTROSE 50% SYRINGE 12.5 GRAMS IV (13:10)
[2024-01-22 13:27] LABS: Glucose - Point of Care 104 mg/dl (70-99)
[2024-01-22 15:05] VITALS: BP 144/54
[2024-01-22 16:45] LABS: Glucose - Point of Care 96 mg/dl (70-99)
[2024-01-22] MEDS: LIPITOR 10 MG PO (17:13)
[2024-01-22] MEDS: SODIUM BICARBONATE 650 MG PO ×2 (17:14→21:31)
[2024-01-22 21:31] LABS: Glucose - Point of Care 79 mg/dl (70-99)
[2024-01-22] MEDS: DESENEX/MITRAZOL/ZEASORB 1 APPLIC TOPICAL (21:33)
[2024-01-22 23:01] VITALS: BP 157/52
[2024-01-23] MEDS: HEPARIN 5000 UNITS SC ×3 (00:30→23:52)
[2024-01-23] MEDS: LR 1000 IV (00:30)
[2024-01-23 02:55] LABS: Glucose - Point of Care 62 mg/dl (70-99)
[2024-01-23] MEDS: DEXTROSE 50% SYRINGE 12.5 GRAMS IV (02:57)
[2024-01-23] MEDS: D5LR 1000 IV (03:16)
[2024-01-23 03:34] LABS: Glucose - Point of Care 122 mg/dl (70-99)
[2024-01-23 05:43] LABS: Glucose - Point of Care 100 mg/dl (70-99)
[2024-01-23] MEDS: SYNTHROID 50 MCG PO (06:25)
[2024-01-23 06:58] LABS: % Basophils 0.5 % (0-2); % Eosinophils 0.9 % (0-6); % Immature Granulocytes 0.7 % (0-0.5); % Lymphocytes 39.3 % (20.5-51.1); % Monocytes 13.6 % (1.7-9.3); Absolute Lymphocytes 1.7 10^3/uL (1.2-3.4); Absolute Monocytes 0.6 10^3/uL (0.1-0.6); Absolute Neutrophils 1.9 10^3/uL (1.4-6.5); Hemoglobin 12.2 g/dL (12.0-16.0); Mean Corp Hgb Conc. 33.9 g/dL (33.0-37.0); Mean Corpuscular Hgb 31.9 pg (27.0-31.0); Mean Corpuscular Volume 94.2 fL (81.0-99.0); Nucleated Red Blood Cells % 0 %; Platelet Count 166 10^3/uL (130-400); Red Blood Cell Count 3.82 10^6/uL (4.20-5.40); Red Cell Dist. Width 13.8 % (11.5-14.5); White Blood Cell Count 4.3 10^3/uL (4.8-10.8)
[2024-01-23 07:05] VITALS: BP 159/58
[2024-01-23 07:21] LABS: Blood Urea Nitrogen 30 mg/dl (7-17); Calcium 8.1 mg/dl (8.4-10.2); Carbon Dioxide 18 mmol/L (22-30); Chloride 114 mmol/L (98-107); Estimated Creatinine Clearance 40 ml/min; Glucose 99 mg/dl (70-99); Potassium 4.3 mmol/L (3.5-5.1); Sodium 141 mmol/L (135-145); eGFR 48.63
[2024-01-23 07:48] LABS: Glucose - Point of Care 111 mg/dl (70-99)
[2024-01-23] MEDS: VISBIOME 2 CAP PO (08:58)
[2024-01-23] MEDS: COZAAR 25 MG PO (08:58)
[2024-01-23] MEDS: TOPROL XL 25 MG PO (08:59)
[2024-01-23] MEDS: SODIUM BICARBONATE 650 MG PO ×3 (08:59→20:59)
[2024-01-23] MEDS: ASPIR LOW (ENTERIC COATED) 81 MG PO (08:59)
[2024-01-23] MEDS: NOVOLOG MIX 70/30 FLEXPEN 7 UNITS SC (09:00)
[2024-01-23] MEDS: DESENEX/MITRAZOL/ZEASORB 1 APPLIC TOPICAL ×2 (09:01→20:59)
--- NOTE | 2024-01-23 10:08 | WOUNDNOTE ---
l
L 3RD DISTAL TOE
--- NOTE | 2024-01-23 10:09 | WOUNDNOTE ---
L BREAST FOLD (distal photo shadow)
--- NOTE | 2024-01-23 10:10 | WOUNDNOTE ---
L 3RD TOE TIP (PLANTAR)
--- NOTE | 2024-01-23 10:12 | WOUNDNOTE ---
[facility] RN note: Patient admitted with enterocolitis. Patient lives with her son who works. She is interested in having VN.
See H&P for complete history.
PMH: IDDM, HTN, obesity, CM CAD, NSTEMI s/p PCI, GI bleed, CKD.
Wound Location and type/assessment: Patient admitted with: L plantar 3rd toe tip deep dermal ulcer r/t hammer toe and diabetes, dark pink with small moist scab. No surrounding erythema. Moderate brown ss drainage. +Palpable pedal pulses. No foot
edema. Mild perianal MASD. Bilateral breast fold MASD.
Appetite: good.
Pressure redistribution devices in place: [employer]. She stood independently during sacral skin assessment.
Plan: L 3rd toe dressing changed. She stated has been to podiatrists before however, she hasn't liked any of them. Instructed patient importance of following up with a superintendent meters for toenail/wound care. She wears wide sneakers and she has Velcro
surgical shoes at home and has a hammer toe bolster pad at home. Air chair cushion given. Miconazole powder and non woven gauze pad applied in breast folds.
Will confirm orders with Dr. Keith and discussed with RANDELL Ramirez.
Care plan to be updated and will follow as needed.
Note to case management requested for discharge: VN to assist with wound care.
--- NOTE | 2024-01-23 10:59 | CM ---
Patient seen at bedside.
Low residue diet ordered.
PLAN: Home, no needs anticipated.
Family to transport
[2024-01-23 11:18] LABS: Glucose - Point of Care 146 mg/dl (70-99)
--- NOTE | 2024-01-23 11:50 | W.PN.HOSP.TC ---
Today's Communication/Plan
-
Monitor vital signs see plan
Trial of low residue diet
DC further fluids and monitor blood sugar closely
Possible discharge in next 24 hours
Assessment / Plan
Assessment / Plan
General: No Apparent Distress
HEENT: NormoCephalic, Anicteric, Moist mucous membranes, Atraumatic and PERRLA
Respiratory: Clear
Cardiac: S1/S2 and Regular Rhythm
Breast: Deferred by me
GI: Soft, Non Tender, Normal Bowel Sounds and Distended
Rectal: Deferred by Provider
Genito-urinary: Deferred by me
Musculoskeletal: No Clubbing, No Cyanosis and No Edema
Skin: Warm
Neuro: AO x 3
Psych: Calm
IMPRESSION:
Patient with IDDM, HTN, CAD s/p PCI, upper GI bleed in august in setting of DAPT presenting to ED with one day of N/V and diarrhea. She is non-toxic, hemodynamically stable, afebrile and without leukocytosis. CT scan c/w enterocolitis
PLAN:
Diarrhea - Acute onset without alarm findings. Possible SEBASTIEN noted. Suspect viral enteritis/enterocolitis. COVID/Flu negative
- cdiff, stool cultures neg. probiotics added
advance to LRD and monitor
dc further fluids
DM II - Patient confirms she is only taking 25 am and 5 pm when blood glucose is < 100. Prior prescriptions have been as high as 80bid and in september 07 bid.
hypoglycemic 01/21
- continue 70/30 at 15 am and 5 pm given reduced po.
- sliding scale aspart ac
CAD
- continue asa 81, statin and metoprolol
CKD/SEBASTIEN - Patient with h/o fluctuating renal function likely with CKD/diabetic renal disease. Last Cr 1.5 in August but around 1 prior to that. Given history possibly pre-renal.
Cr slowly Improving so I believe she did had some acute kidney injury
- will continue arb for now
- patient does not need diuretics
DVT PPX - heparin sq
Code Status - DNR
Anticipated Discharge: Within 24 hours
Subjective/Interval History
-
Date of Service: January 23, 2024
denies nausea
Objective Data
-
Labs:
Laboratory Results
01/23/24
06:15
WBC 4.3 L
Hgb 12.2
Hct 36.0 L
Plt Count 166
Sodium 141
Potassium 4.3
Chloride 114 H
Carbon Dioxide 18 L
BUN 30 H
Creatinine 1.1 H
Glucose 99
Calcium 8.1 L
Vital Signs:
Vital Signs
Temp Pulse Resp BP Pulse Ox
98.3 F 74 16 159/58 94
01/23/24 07:05 01/23/24 07:05 01/23/24 07:05 01/23/24 08:58 01/23/24 07:05
I&O
01/22/24 01/23/24 01/24/24
06:59 06:59 06:59
Intake Total 250 / 250 2580 / 2580
Balance 250 / 250 2580 / 2580
[2024-01-23 15:15] VITALS: BP 160/58
[2024-01-23] MEDS: HEPARIN SC (16:36)
[2024-01-23 16:40] LABS: Glucose - Point of Care 134 mg/dl (70-99)
[2024-01-23 17:31] VITALS: BP 147/56
[2024-01-23 18:26] VITALS: BP 170/60; BP 176/58; PULSE 78; PULSE 80
[2024-01-23 21:07] LABS: Glucose - Point of Care 149 mg/dl (70-99)
[2024-01-23 22:55] VITALS: BP 141/56
[2024-01-24 03:36] LABS: Glucose - Point of Care 103 mg/dl (70-99)
[2024-01-24] MEDS: SYNTHROID 50 MCG PO (05:50)
[2024-01-24 07:05] VITALS: BP 164/58
[2024-01-24 07:18] LABS: % Basophils 0.4 % (0-2); % Eosinophils 1.3 % (0-6); % Immature Granulocytes 0.4 % (0-0.5); % Lymphocytes 44.5 % (20.5-51.1); % Monocytes 11.4 % (1.7-9.3); Absolute Eosinophils 0.1 10^3/uL (0-0.7); Absolute Lymphocytes 2.5 10^3/uL (1.2-3.4); Absolute Monocytes 0.6 10^3/uL (0.1-0.6); Absolute Neutrophils 2.3 10^3/uL (1.4-6.5); Hematocrit 36.7 % (37.0-47.0); Hemoglobin 12.3 g/dL (12.0-16.0); Mean Corp Hgb Conc. 33.5 g/dL (33.0-37.0); Mean Corpuscular Hgb 30.3 pg (27.0-31.0); Mean Corpuscular Volume 90.4 fL (81.0-99.0); Mean Platelet Volume 9.9 fL (7.4-10.4); Nucleated Red Blood Cells % 0 %; Platelet Count 204 10^3/uL (130-400); Red Blood Cell Count 4.06 10^6/uL (4.20-5.40); Red Cell Dist. Width 13.5 % (11.5-14.5); White Blood Cell Count 5.5 10^3/uL (4.8-10.8)
[2024-01-24 07:19] LABS: Blood Urea Nitrogen 23 mg/dl (7-17); Calcium 8.4 mg/dl (8.4-10.2); Carbon Dioxide 18 mmol/L (22-30); Chloride 112 mmol/L (98-107); Estimated Creatinine Clearance 44 ml/min; Glucose 103 mg/dl (70-99); Potassium 4.2 mmol/L (3.5-5.1); Sodium 142 mmol/L (135-145); eGFR 54.53
[2024-01-24 08:22] LABS: Glucose - Point of Care 87 mg/dl (70-99)
[2024-01-24] MEDS: COZAAR 25 MG PO (08:49)
[2024-01-24] MEDS: HEPARIN 5000 UNITS SC (08:49)
[2024-01-24] MEDS: SODIUM BICARBONATE 650 MG PO (08:49)
[2024-01-24] MEDS: VISBIOME 2 CAP PO (08:49)
[2024-01-24] MEDS: ASPIR LOW (ENTERIC COATED) 81 MG PO (08:49)
[2024-01-24] MEDS: TOPROL XL 25 MG PO (08:49)
[2024-01-24] MEDS: BACTROBAN 2% OINTMENT 1 APPLIC TOPICAL (08:50)
[2024-01-24] MEDS: NOVOLOG MIX 70/30 FLEXPEN 7 UNITS SC (08:50)
[2024-01-24] MEDS: DESENEX/MITRAZOL/ZEASORB 1 APPLIC TOPICAL (08:50)
--- NOTE | 2024-01-24 09:30 | PTCARENOTE ---
pt aaox3 states no pain but is concerned about constipation at home. she is nervous to eat food so that the pain may come back. reviewed plan of care with pt. and that eating is the next step.
--- NOTE | 2024-01-24 09:52 | CM ---
Patient seen at bedside.
Discussed options of home health to assist with wound care. Prefers [facility] as she has had in past.
Notified liaison & referral placed in [facility].
Spoke with son regarding plan
PLAN: Discharge when stable to home with visiting nurse.
Son to transport.
--- NOTE | 2024-01-24 10:26 | VNURNOTE ---
Home Health Liaison met with patient at bedside to discuss [facility] nurse visits, schedule and homebound status. Patient is agreeable and understands that visits at home will be 2-3 x per week to assess and teach medical management. [facility] brochure
provided with contact information. Patient is aware that [facility] will contact them for start of care in 1-2 days after discharge from .
[facility] referral updated in [facility].
--- NOTE | 2024-01-24 11:40 | W.PN.HOSP.TC ---
Today's Communication/Plan
-
see PN, possible D/C if continue to tolerate diet
Assessment / Plan
Assessment / Plan
88yo F with PMHx of CAD< gastritis, HX of upper GIB, HLD, DM, HTN, GERD came with 1 day of severe abdominal pain, nausea, vomiting and diarrhea. CT abdomen showed findings of gastroenteritis. C.diff PCR neg. Pain and nausea resolved, but diarrhea
perissted, however decreased in amount. Was able to tolerate diet
A/P
#Gastroenteritis
improving
advance diet
Lipase and Lactate WNL
LFT WNL
C.diff neg
Stool Cx pending
#CAD s/p PCI
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
cont ASA, statin
Outpatient VascSx eval advised
#Chronic T12 compression Fx
f/u with PCP for osteoporosis workup
#Umbilical hernia
no additional mgmt at this point as asymptomatic
#Hypothyroidism
#DM type 2 with neuroapthy
#Essential HTN
Insulin SS
reduced dose - was on 25units @AM and 5units @PM before admission, not 30units BID
70/30 min
DM diet
cont home meds
#SEBASTIEN
2.2 nausea/vomiting
resolved
DVT ppx on hep
DNR/DNI
I have spoent at least 38min reviewing chart, test results and provding direct patient care
Anticipated Discharge: Within 24 hours
Subjective/Interval History
-
Date of Service: January 24, 2024
Objective Data
-
Labs:
Laboratory Results
01/24/24
06:23
WBC 5.5
Hgb 12.3
Hct 36.7 L
Plt Count 204 D
Sodium 142
Potassium 4.2
Chloride 112 H
Carbon Dioxide 18 L
BUN 23 H
Creatinine 1.0
Glucose 103 H
Calcium 8.4
Vital Signs:
Vital Signs
Temp Pulse Resp BP Pulse Ox
98.2 F 68 16 164/58 95
01/24/24 07:05 01/24/24 08:49 01/24/24 07:05 01/24/24 08:49 01/24/24 07:05
I&O
01/23/24 01/24/24 01/25/24
06:59 06:59 06:59
Intake Total 2580 / 2580 1380 / 1380
Balance 2580 / 2580 1380 / 1380
Review of Systems
-
History Source: Patient
All other systems: Reviewed and negative
Abdomen/GI: Reports Diarrhea
Physical Exam
-
General: No Apparent Distress
HEENT: Normocephalic
Respiratory: Clear to Auscultation
Cardiac: Regular Rhythm
GI: Soft, Nontender and Nondistended
Musculoskeletal: No Clubbing, No Cyanosis and No Edema
Neuro: Awake, Alert, Oriented and AO x 3
[2024-01-24 12:45] LABS: Glucose - Point of Care 84 mg/dl (70-99)
[2024-01-24 14:10] VITALS: BP 155/52
--- NOTE | 2024-01-24 16:04 | W.DCSUMMARY ---
Discharge Summary
Discharge Data
Date of Admission: 01/22/24
Date of Discharge: 01/24/24
-
Pending Results: No
Hospital Course
88yo F with PMHx of CAD< gastritis, HX of upper GIB, HLD, DM, HTN, GERD came with 1 day of severe abdominal pain, nausea, vomiting and diarrhea. CT abdomen showed findings of gastroenteritis. C.diff PCR neg. Pain and nausea resolved, but diarrhea
persisted, however decreased in amount. Was able to tolerate diet and no more diarrhea on the day of d/c. Advised to follow up with PCP for b/l renal artery stenosis, SMA and celiac arteries stenosis for possible referral to VascSx and risk factor
modification as well as for DEXA. Medically stable for d/c
I have spent at least 38min discharging the patient
Patient was managed for:
#Gastroenteritis
#CAD s/p PCI
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
#Chronic T12 compression Fx
#Umbilical hernia
#Hypothyroidism
#DM type 2 with neuroapthy
#Essential HTN
#SEBASTIEN
Discharge Plan
-
Patient Disposition: Home (Routine Discharge)
Discharge Diagnosis/Procedures: Gastroenteritis
Diet: Diabetic, Carb Controlled
Activity: As tolerated
Driving Restrictions: As prior to admission
Activity Restrictions/Additional Instructions:
Wound Care Instructions
L 3rd toe wound care-clean with saline or Vashe wound cleanser (SPD), Bactroban ointment, cover with piece of alginate then gauze pad, change daily and prn drainage. Can roll up a 2x2 non woven gauze pad to apply under 3rd toe base to help
straighten toe.
Follow up with a family and consumer sciences teacher for toenail/wound care.
Miconazole powder to breast folds twice a day, apply non woven gauze pad under breast folds.
Pressure redistributing chair cushion (i.e. Air chair cushion).
Elevate heels off bed with pillow/s.
Follow up at wound care center if needed, call for an appointment.
Referrals:
Fracisco Valencia I., DO [Family Provider] -
Prescriptions:
New
Novolin 70-30 FlexPen U-100 100 unit/mL (70-30) insulin pen
5 unit SC DAILY@1800 Qty: 15 0RF
Continued
levothyroxine 50 MCG tablet
50 mcg PO DAILY@06
telmisartan 40 MG tablet
40 mg PO DAILY
cholecalciferol (vitamin D3) [Vitamin D3] 1,000 UNIT capsule
1,000 unit PO DAILY
aspirin 81 mg Tablet,Delayed Release (Dr/Ec)
81 mg PO DAILY Qty: 20 0RF
metoprolol succinate 25 mg Tablet Extended Release 24 Hr
25 mg PO DAILY Qty: 30 11RF
atorvastatin [Lipitor] 10 mg Tablet
10 mg PO Q48H@1700
furosemide 20 mg tablet
20 mg PO Q48H
pantoprazole [Protonix] 40 mg tablet,delayed release (DR/EC)
40 mg PO BID Qty: 60 1RF
Changed
Novolin 70/30 U-100 Insulin 100 unit/mL (70-30) suspension
25 unit SC DAILY@0900 Qty: 0 0RF
Discharge Orders:
Discharge Patient (As Directed); Ordered 01/24/24
Ordered By: Fletcher Peacock
Discharge Date and Time
Print Language: SLOVENIAN
== END 2024-01-24 16:44 | disposition home or self-care (01) ==
LOC: 2 NORTH 01:57
PROVIDERS: Emergency Medicine; Hospitalist; Internal Medicine; ADMITTING PHYSICIAN Internal Medicine; ATTENDING PHYSICIAN Internal Medicine; EMERGENCY PHYSICIAN Emergency Medicine; FAMILY PHYSICIAN Internal Medicine
DX: K52.9 Noninfective gastroenteritis and colitis, unspecified (principal); R10.9 Unspecified abdominal pain; E11.649 Type 2 diabetes mellitus with hypoglycemia without coma; R14.0 Abdominal distension (gaseous); R11.2 Nausea with vomiting, unspecified; K59.00 Constipation, unspecified; R53.83 Other fatigue; N17.9 Acute kidney failure, unspecified; M54.9 Dorsalgia, unspecified; R07.9 Chest pain, unspecified; N39.3 Stress incontinence (female) (male); I25.5 Ischemic cardiomyopathy; M48.54XA Collapsed vertebra, not elsewhere classified, thoracic region, initial encounter for fracture; E78.00 Pure hypercholesterolemia, unspecified; E03.9 Hypothyroidism, unspecified; K63.89 Other specified diseases of intestine; I77.1 Stricture of artery; I11.9 Hypertensive heart disease without heart failure; E11.36 Type 2 diabetes mellitus with diabetic cataract; K21.9 Gastro-esophageal reflux disease without esophagitis; I70.1 Atherosclerosis of renal artery; I25.10 Atherosclerotic heart disease of native coronary artery without angina pectoris; M19.90 Unspecified osteoarthritis, unspecified site; K44.9 Diaphragmatic hernia without obstruction or gangrene; F41.9 Anxiety disorder, unspecified; K42.9 Umbilical hernia without obstruction or gangrene; I25.2 Old myocardial infarction; Z79.890 Hormone replacement therapy; Z79.82 Long term (current) use of aspirin; Z79.4 Long term (current) use of insulin; Z87.19 Personal history of other diseases of the digestive system; Z87.440 Personal history of urinary (tract) infections; Z87.11 Personal history of peptic ulcer disease; Z90.49 Acquired absence of other specified parts of digestive tract; Z95.5 Presence of coronary angioplasty implant and graft; Z88.1 Allergy status to other antibiotic agents; Z88.0 Allergy status to penicillin; Z88.2 Allergy status to sulfonamides; Z88.8 Allergy status to other drugs, medicaments and biological substances; Z66 Do not resuscitate; Z11.52 Encounter for screening for COVID-19
CPT/HCPCS: 74176; 80048; 80053; 82962; 83605; 83690; 85025; 85027; 87045; 87046; 87324; 87427; 87449; 87502; 87811; 93005; 96361; 96374; 96375; 99285; G0378

== ENCOUNTER → 2024-03-20 09:41 | Outpatient (REF) | payer MEDICARE, OTHER, SELFPAY ==
[2024-03-20 11:11] LABS: ALT (SGPT) 20 U/L (0-35); AST (SGOT) 28 U/L (14-36); Albumin 3.8 g/dl (3.5-5.0); Alkaline Phosphatase 96 U/L (38-126); Blood Urea Nitrogen 48 mg/dl (7-17); Calcium 9.1 mg/dl (8.4-10.2); Carbon Dioxide 25 mmol/L (22-30); Chloride 106 mmol/L (98-107); Glucose 111 mg/dl (70-99); HDL Cholesterol 70 mg/dl; LDL Cholesterol, Calculated 57 mg/dl; Potassium 5.3 mmol/L (3.5-5.1); Sodium 138 mmol/L (135-145); Total Bilirubin 0.5 mg/dl (0.2-1.3); Total Cholesterol 147 mg/dl (50-199); Total Protein 6.3 g/dl (6.3-8.2); Triglyceride 103 mg/dl (10-149); Very Low Density Lipoprotein 20 mg/dl (0-30); eGFR 39.55
[2024-03-20 12:08] LABS: Glycohemoglobin (HgbA1c) 6.4 % (4.0-5.6)
[2024-03-20 12:36] LABS: % Basophils 0.6 % (0-2); % Eosinophils 2.1 % (0-6); % Immature Granulocytes 0.2 % (0-0.5); % Monocytes 6.9 % (1.7-9.3); % Neutrophils 47.2 % (42.2-75.2); Absolute Eosinophils 0.1 10^3/uL (0-0.7); Absolute Lymphocytes 2.7 10^3/uL (1.2-3.4); Absolute Monocytes 0.4 10^3/uL (0.1-0.6); Absolute Neutrophils 2.9 10^3/uL (1.4-6.5); Hematocrit 43.2 % (37.0-47.0); Hemoglobin 14.4 g/dL (12.0-16.0); Mean Corp Hgb Conc. 33.3 g/dL (33.0-37.0); Mean Platelet Volume 10.5 fL (7.4-10.4); Nucleated Red Blood Cells % 0 %; Platelet Count 238 10^3/uL (130-400); Red Cell Dist. Width 13.2 % (11.5-14.5); White Blood Cell Count 6.2 10^3/uL (4.8-10.8)
== END ==
LOC: OLAB 09:41
PROVIDERS: ATTENDING PHYSICIAN Family Medicine
DX: E11.9 Type 2 diabetes mellitus without complications (principal); N18.32 Chronic kidney disease, stage 3b; I10 Essential (primary) hypertension; E78.5 Hyperlipidemia, unspecified; E03.9 Hypothyroidism, unspecified; I50.20 Unspecified systolic (congestive) heart failure
CPT/HCPCS: 36415; 80053; 80061; 83036; 85025